=== PATIENT | female | born 1965 | race Caucasian/White ===

== ENCOUNTER 2016-10-03 03:50 | Inpatient (IN) | payer OTHER ==
[~2016-10-03] VITALS: Ht 170.2 cm; Wt 78.3 kg
[~2016-10-03 03:50] MED LIST: ADVAIR HFA120 INHALA IH; ADVIL200 MG PO; AMOX TR-K CLV1 EAC4 PO; ATARAX,VISTARIL50 MG PO; AUGMENTIN875 MG PO; BENZONATATE100 MG PO; CLONIDINE HCL0.1 MG PO; CYM; CYMBALTA30 MG PO; CYMBALTA60 MG PO; DESYREL 150 MG150 MG PO; DULOXETINE HCL30 MG PO; DULOXETINE HCL60 MG PO; ELIQUIS5 MG PO; ENDOCET 5-3251 EACH PO; FLORASTOR250 MG PO; FOLIC ACID1 MG PO; GABAPENTIN300 MG PO; HYDROXYZINE PAM25 MG PO; HYDROXYZINE PAM50 MG PO; K-DUR20 MEQ PO; KLOR-CON M2020 MEQ PO; LAMICTAL100 MG PO; LAMICTAL25 MG PO; LAMOTRIGINE100 MG PO; LEVAQUIN750 MG PO; LIBRIUM25 MG PO; LISINOPRIL10 MG PO; LISINOPRIL20 MG PO; LISINOPRIL40 MG PO; MELOXICAM7.5 MG PO; METRONIDAZOLE500 MG PO; MOTRIN; MOTRIN IB200 MG PO; MYCOSTATIN 100,60 ML PO; NEURONTIN300 MG PO; NICODERM CQ1 EAC2 TD; NICOTINE PATCH1 EAC2 TD; OMEPRAZOLE20 MG PO; OXYCODONE HCL5 MG PO; OXYCODONE-ACET1 EACH PO; PANTOPRAZOLE SO40 MG PO; PEPCID20 MG PO; PERCOCET 10/1 TABLET PO; PERCOCET 5/31 TABLET PO; PREDNISONE20 MG PO; PROAIR HFA8.5 GM IH; QUETIAPINE FUM100 MG PO; QUETIAPINE FUMA25 MG PO; QUETIAPINE FUMA50 MG PO; SPIRIVA RESPIMAT4 GM IH; TRAMADOL HCL50 MG PO; Thiamine,Vitamin B1 PO; ZOLPIDEM TARTRAT5 MG PO
[2016-10-03 04:36] LABS: CHLORIDE 98 mEq/L (99-109); POTASSIUM 3.6 mEq/L (3.7-5.4); SODIUM 134 mEq/L (136-147)
[2016-10-03 04:38] LABS: GLUCOSE 185 mg/dL (70-99)
[2016-10-03 04:39] LABS: ANION GAP 11 MEQ/L (2-14); HEMATOCRIT 35.5 % (36.0-46.0); MCH 31.8 PG (29.0-34.0); MCHC 33.5 G/DL (30.0-36.0); MCV 94.9 FL (83-99); MEAN PLAT.VOLUME 8.4 uM^3 (9.5-12.4); PLATELET COUNT 661 K/uL (156-360); RBC DIS.WIDTH-CV 16.6 % (11.8-14.6); RBC DIS.WIDTH-SD 55.4 % (39-53); RED BLOOD COUNT 3.74 M/uL (3.80-5.20); WHITE BLOOD COUNT 6.9 K/uL (4.1-10.2)
[2016-10-03 04:40] LABS: TOTAL BILIRUBIN 0.6 mg/dL (0.0-1.0)
[2016-10-03 04:41] LABS: ALKALINE PHOSPHATASE 89 IU/L (3-129)
[2016-10-03 04:42] LABS: GFR ESTIMATE (CALCULATED) > 59 mL/min/
[2016-10-03 04:43] LABS: UREA NITROGEN (BUN) 7 mg/dL (9-23)
[2016-10-03 04:45] LABS: LIPASE 181 U/L (1.0-51.0)
[2016-10-03 04:51] LABS: QUANTITATIVE HCG < 4.0 MIU/ML
[2016-10-03] MEDS ORDERED: KLOR-CON M2020 MEQ PO (09:14)
[2016-10-03 09:45] LABS: ADD MIUA? NO; BILIRUBIN NEGATIVE; BLOOD NEGATIVE; COLOR YELLOW ((YELLOW)); GLUCOSE (STRIP) NEGATIVE; KETONES NEGATIVE; LEUKOCYTES NEGATIVE; NITRITE NEGATIVE; PROTEIN (STRIP) NEGATIVE; UCUL ADDED? NO; UROBILINOGEN 0.2 MG/DL (0.2-1.0)
[2016-10-03 10:11] LABS: SPECIFIC GRAVITY 1.002 (1.000-1.030)
[2016-10-03 16:41] VITALS: BP 135/78
[2016-10-03 20:25] VITALS: BP 138/97
[2016-10-04] VITALS: BP 82/54
[2016-10-04 04:00] VITALS: BP 104/62
[2016-10-04 07:07] LABS: ANION GAP 6 MEQ/L (2-14); CHLORIDE 110 MEQ/L (99-109); GFR ESTIMATE (CALCULATED) > 59 mL/min/; GLUCOSE 131 mg/dL (70-99); POTASSIUM 4.1 MEQ/L (3.7-5.4); SAMPLE HEMOLYSIS CHECK 0; SAMPLE ICTERIC CHECK 0; SAMPLE LIPEMIA CHECK 0; SODIUM 139 MEQ/L (136-147); UREA NITROGEN (BUN) 3 mg/dL (9-23)
[2016-10-04 08:14] VITALS: BP 129/73
[2016-10-04 08:32] LABS: LIPASE 251 U/L (1.0-51.0)
[2016-10-04 08:38] LABS: EOSINOPHIL (%) 2.2 % (0-5); EOSINOPHIL COUNT 0.1 K/uL (0-0.3); HEMATOCRIT 29.9 % (36.0-46.0); IMMATURE GRANULOCYTE (%) 0.8 % (0.0-0.7); LYMPHOCYTE COUNT 0.9 K/uL (1.0-2.8); MCHC 31.4 G/DL (30.0-36.0); MEAN PLAT.VOLUME 9.1 uM^3 (9.5-12.4); MONOCYTE (%) 15.1 % (3-12); MONOCYTE COUNT 0.5 K/uL (0-0.8); NEUTROPHIL (%) 54.8 % (45-76); PLATELET COUNT 484 K/uL (156-360); RBC DIS.WIDTH-CV 17.3 % (11.8-14.6); RBC DIS.WIDTH-SD 63.4 % (39-53)
[2016-10-04 08:39] LABS: MCV 101.7 FL (83-99); RED BLOOD COUNT 2.94 M/uL (3.80-5.20); WHITE BLOOD COUNT 3.6 K/uL (4.1-10.2)
[2016-10-04 15:34] VITALS: BP 133/77
[2016-10-04 23:41] LABS: D-DIMER ELISA 0.48 mg/L FEU (< 0.57)
[2016-10-04 23:42] LABS: POTASSIUM 3.6 mEq/L (3.7-5.4); SODIUM 140 mEq/L (136-147)
[2016-10-04 23:45] LABS: GLUCOSE 170 mg/dL (70-99)
[2016-10-04 23:46] LABS: ANION GAP 9 MEQ/L (2-14); EOSINOPHIL (%) 0.4 % (0-5); HEMATOCRIT 33.2 % (36.0-46.0); IMMATURE GRANULOCYTE (%) 0.7 % (0.0-0.7); IMMATURE GRANULOCYTE COUNT 0.6 K/uL; LYMPHOCYTE COUNT 0.7 K/uL (1.0-2.8); MCHC 31.9 G/DL (30.0-36.0); MCV 100.3 FL (83-99); MEAN PLAT.VOLUME 8.5 uM^3 (9.5-12.4); MONOCYTE (%) 6.9 % (3-12); MONOCYTE COUNT 0.6 K/uL (0-0.8); NEUTROPHIL (%) 84.4 % (45-76); NEUTROPHIL COUNT 7.7 K/uL (1.8-6.4); PLATELET COUNT 572 K/uL (156-360); RBC DIS.WIDTH-CV 15.9 % (11.8-14.6); RBC DIS.WIDTH-SD 55.6 % (39-53); RED BLOOD COUNT 3.31 M/uL (3.80-5.20); WHITE BLOOD COUNT 9.1 K/uL (4.1-10.2)
[2016-10-04 23:48] LABS: ALKALINE PHOSPHATASE 76 IU/L (3-129); CHLORIDE 110 mEq/L (99-109); GFR ESTIMATE (CALCULATED) > 59 mL/min/; TOTAL BILIRUBIN 0.2 mg/dL (0.0-1.0)
[2016-10-04 23:49] LABS: UREA NITROGEN (BUN) 4 mg/dL (9-23)
[2016-10-05] VITALS (7 sets, daily range): BP systolic 111–175; BP diastolic 61–99
[2016-10-05 01:11] LABS: TROP-I INTERPRETATION NEGATIVE; TROPONIN-I < 0.01 ng/mL (0.0-0.30)
[2016-10-05 05:34] LABS: TROP-I INTERPRETATION NEGATIVE; TROPONIN-I < 0.01 ng/mL (0.0-0.30)
[2016-10-05 10:58] LABS: HEMATOCRIT 33.3 % (36.0-46.0); MCH 32.3 PG (29.0-34.0); MCHC 31.5 G/DL (30.0-36.0); MCV 102.5 FL (83-99); PLATELET COUNT 522 K/uL (156-360); RBC DIS.WIDTH-CV 16.4 % (11.8-14.6); RBC DIS.WIDTH-SD 61.3 % (39-53); RED BLOOD COUNT 3.25 M/uL (3.80-5.20); WHITE BLOOD COUNT 11.1 K/uL (4.1-10.2)
[2016-10-05 11:03] LABS: EOSINOPHIL (%) 0.3 % (0-5); IMMATURE GRANULOCYTE (%) 1.7 % (0.0-0.7); IMMATURE GRANULOCYTE COUNT 0.2 K/uL; LYMPHOCYTE COUNT 0.5 K/uL (1.0-2.8); MONOCYTE (%) 2.3 % (3-12); MONOCYTE COUNT 0.3 K/uL (0-0.8); NEUTROPHIL (%) 91.5 % (45-76); NEUTROPHIL COUNT 10.2 K/uL (1.8-6.4)
[2016-10-05 11:24] LABS: ANION GAP 9 MEQ/L (2-14); CHLORIDE 104 MEQ/L (99-109); GFR ESTIMATE (CALCULATED) > 59 mL/min/; LIPASE 269 U/L (1.0-51.0); POTASSIUM 4.2 MEQ/L (3.7-5.4); SAMPLE HEMOLYSIS CHECK 0; SAMPLE ICTERIC CHECK 0; SAMPLE LIPEMIA CHECK 0; SODIUM 139 MEQ/L (136-147); UREA NITROGEN (BUN) 3 mg/dL (9-23)
[2016-10-05 11:25] LABS: GLUCOSE 120 mg/dL (70-99)
[2016-10-05 11:34] LABS: TROP-I INTERPRETATION NEGATIVE; TROPONIN-I < 0.01 ng/mL (0.0-0.30)
[2016-10-06 04:17] VITALS: BP 138/90
[2016-10-06 08:13] VITALS: BP 146/52
[2016-10-06 09:37] LABS: ANION GAP 10 MEQ/L (2-14); CHLORIDE 103 MEQ/L (99-109); GFR ESTIMATE (CALCULATED) > 59 mL/min/; GLUCOSE 140 mg/dL (70-99); LIPASE 320 U/L (1.0-51.0); POTASSIUM 3.9 MEQ/L (3.7-5.4); SAMPLE HEMOLYSIS CHECK 0; SAMPLE ICTERIC CHECK 0; SAMPLE LIPEMIA CHECK 0; SODIUM 140 MEQ/L (136-147); UREA NITROGEN (BUN) 4 mg/dL (9-23)
[2016-10-06 14:56] VITALS: BP 151/89
[2016-10-06 23:10] VITALS: BP 134/73
[2016-10-07 03:30] VITALS: BP 135/85
[2016-10-07 08:38] VITALS: BP 172/76
[2016-10-07 16:00] VITALS: BP 160/98
[2016-10-07 19:28] VITALS: BP 171/97
[2016-10-07 22:47] VITALS: BP 121/68
[2016-10-08 02:54] VITALS: BP 134/70
[2016-10-08 06:10] LABS: HEMATOCRIT 29.6 % (36.0-46.0); MCH 32.1 PG (29.0-34.0); MCHC 31.8 G/DL (30.0-36.0); PLATELET COUNT 439 K/uL (156-360); RBC DIS.WIDTH-CV 17.5 % (11.8-14.6); RBC DIS.WIDTH-SD 64.3 % (39-53); RED BLOOD COUNT 2.93 M/uL (3.80-5.20); WHITE BLOOD COUNT 11.9 K/uL (4.1-10.2)
[2016-10-08 06:13] LABS: EOSINOPHIL (%) 0.4 % (0-5); EOSINOPHIL COUNT 0.1 K/uL (0-0.3); IMMATURE GRANULOCYTE (%) 1.3 % (0.0-0.7); IMMATURE GRANULOCYTE COUNT 0.2 K/uL; LYMPHOCYTE COUNT 1.7 K/uL (1.0-2.8); MONOCYTE COUNT 0.8 K/uL (0-0.8); NEUTROPHIL (%) 76.3 % (45-76); NEUTROPHIL COUNT 9.1 K/uL (1.8-6.4)
[2016-10-08 06:40] LABS: ANION GAP 5 MEQ/L (2-14); CHLORIDE 101 MEQ/L (99-109); GFR ESTIMATE (CALCULATED) > 59 mL/min/; GLUCOSE 112 mg/dL (70-99); LIPASE 118 U/L (1.0-51.0); POTASSIUM 3.9 MEQ/L (3.7-5.4); SAMPLE HEMOLYSIS CHECK 0; SAMPLE ICTERIC CHECK 0; SAMPLE LIPEMIA CHECK 0; SODIUM 137 MEQ/L (136-147); UREA NITROGEN (BUN) 2 mg/dL (9-23)
[2016-10-08 07:20] VITALS: BP 150/80
[2016-10-08 13:28] VITALS: BP 146/81
[2016-10-08 15:00] VITALS: BP 124/74
[2016-10-08 23:03] VITALS: BP 118/67
[2016-10-09 07:46] VITALS: BP 118/84
[2016-10-09 15:03] VITALS: BP 162/96
[2016-10-09 17:54] VITALS: BP 156/94
[2016-10-10 09:33] VITALS: BP 121/80
[2016-10-10 17:08] VITALS: BP 181/101
[2016-10-10 22:51] VITALS: BP 100/56
[2016-10-11 01:10] VITALS: BP 94/63
[2016-10-11 05:25] VITALS: BP 96/65
[2016-10-11 05:36] VITALS: BP 96/65
[2016-10-11 06:59] LABS: HEMATOCRIT 34.4 % (36.0-46.0); MCH 30.1 PG (29.0-34.0); MCHC 29.9 G/DL (30.0-36.0); MCV 100.6 FL (83-99); PLATELET COUNT 370 K/uL (156-360); RBC DIS.WIDTH-CV 17.2 % (11.8-14.6); RED BLOOD COUNT 3.42 M/uL (3.80-5.20)
[2016-10-11 07:00] LABS: WHITE BLOOD COUNT 4.1 K/uL (4.1-10.2)
[2016-10-11 07:29] LABS: ALKALINE PHOSPHATASE 54 IU/L (3-129); ANION GAP 6 MEQ/L (2-14); CHLORIDE 101 MEQ/L (99-109); GFR ESTIMATE (CALCULATED) > 59 mL/min/; GLUCOSE 134 mg/dL (70-99); POTASSIUM 4.2 MEQ/L (3.7-5.4); SAMPLE HEMOLYSIS CHECK 0; SAMPLE ICTERIC CHECK 0; SAMPLE LIPEMIA CHECK 0; SODIUM 137 MEQ/L (136-147); TOTAL BILIRUBIN 0.2 MG/DL (0.0-1.0); UREA NITROGEN (BUN) 3 mg/dL (9-23)
[2016-10-11 09:23] VITALS: BP 107/72
[2016-10-11 10:22] LABS: C DIFF TOXIN POSITIVE (NEGATIVE)
[2016-10-11 10:27] LABS: PROBE CHECK PASS
[2016-10-11 18:07] VITALS: BP 122/82
[2016-10-11 22:32] VITALS: BP 106/72
[2016-10-12 08:17] VITALS: BP 125/78
[2016-10-12 08:34] VITALS: BP 125/78
[2016-10-12] MEDS ORDERED: SUCRALFATE1 GM PO (11:11)
[2016-10-12] MEDS ORDERED: CREON DR 12,001 EAC1 PO (11:11)
[2016-10-12] MEDS ORDERED: NICOTINE PATCH1 EAC2 TD (11:11)
[2016-10-12] MEDS ORDERED: FAMOTIDINE40 MG PO (12:20)
== END 2016-10-12 15:35 | disposition home or self-care (01) | DRG 438 ==
LOC: EME 03:50 → EDOF 09:37 → 5EAST 09:37
PROVIDERS: Hospitalist; Internal Medicine; Internal Medicine Gastroenterology
PROC: 8E0ZXY6 Isolation (ICD-10-PCS; principal; 2016-10-03)
DX: K85.20 Alcohol induced acute pancreatitis without necrosis or infection (principal); J18.9 Pneumonia, unspecified organism; A04.7 Enterocolitis due to Clostridium difficile; E87.1 Hypo-osmolality and hyponatremia; F33.9 Major depressive disorder, recurrent, unspecified; J98.11 Atelectasis; F17.210 Nicotine dependence, cigarettes, uncomplicated; F10.20 Alcohol dependence, uncomplicated; I10 Essential (primary) hypertension; E87.6 Hypokalemia; J44.9 Chronic obstructive pulmonary disease, unspecified; G89.29 Other chronic pain; M51.9 Unspecified thoracic, thoracolumbar and lumbosacral intervertebral disc disorder; E86.1 Hypovolemia; F41.9 Anxiety disorder, unspecified; E66.9 Obesity, unspecified; M19.90 Unspecified osteoarthritis, unspecified site; Z86.711 Personal history of pulmonary embolism; Z86.718 Personal history of other venous thrombosis and embolism; Z68.27 Body mass index [BMI] 27.0-27.9, adult; Z88.5 Allergy status to narcotic agent; Z79.01 Long term (current) use of anticoagulants; Z91.040 Latex allergy status; Z82.49 Family history of ischemic heart disease and other diseases of the circulatory system
CPT/HCPCS: 71010; 74160; 74176; 74177; 76705; 80048; 80053; 81003; 83690; 84484; 84702; 85025; 85025 91; 85027; 85379; 87493; 93005; 94640; 94640 76; 94760; 94799; 99202; 99281; 99284; C9113; G0480; J0360; J1170; J1956; J2060; J2270; J2405; J7030; J7512; S0028; S0030

== ENCOUNTER 2016-10-21 10:25 | Inpatient (IN) | payer OTHER ==
[~2016-10-21] VITALS: Ht 167.6 cm; Wt 80.1 kg
[~2016-10-21 10:25] MED LIST changes: +CREON DR 12,001 EAC1 PO; +FAMOTIDINE40 MG PO; +SUCRALFATE1 GM PO
[2016-10-21 11:49] LABS: EOSINOPHIL (%) 0.6 % (0-5); EOSINOPHIL COUNT 0.1 K/uL (0-0.3); HEMATOCRIT 34.7 % (36.0-46.0); IMMATURE GRANULOCYTE (%) 0.2 % (0.0-0.7); IMMATURE GRANULOCYTE COUNT 0.2 K/uL; LYMPHOCYTE COUNT 0.7 K/uL (1.0-2.8); MCH 31.8 PG (29.0-34.0); MEAN PLAT.VOLUME 9.7 uM^3 (9.5-12.4); MONOCYTE (%) 4.2 % (3-12); MONOCYTE COUNT 0.5 K/uL (0-0.8); NEUTROPHIL (%) 88.3 % (45-76); NEUTROPHIL COUNT 9.6 K/uL (1.8-6.4); PLATELET COUNT 358 K/uL (156-360); RBC DIS.WIDTH-CV 15.4 % (11.8-14.6); RBC DIS.WIDTH-SD 49.3 % (39-53); RED BLOOD COUNT 3.71 M/uL (3.80-5.20)
[2016-10-21 11:53] LABS: MCV 93.5 FL (83-99); WHITE BLOOD COUNT 10.8 K/uL (4.1-10.2)
[2016-10-21 11:54] LABS: CHLORIDE 99 mEq/L (99-109); POTASSIUM 2.6 mEq/L (3.7-5.4); SODIUM 134 mEq/L (136-147)
[2016-10-21 11:56] LABS: GLUCOSE 128 mg/dL (70-99)
[2016-10-21 11:57] LABS: ANION GAP 13 MEQ/L (2-14)
[2016-10-21 11:58] LABS: TOTAL BILIRUBIN 0.5 mg/dL (0.0-1.0)
[2016-10-21 11:59] LABS: ALKALINE PHOSPHATASE 66 IU/L (3-129)
[2016-10-21 12:00] LABS: GFR ESTIMATE (CALCULATED) > 59 mL/min/
[2016-10-21 12:01] LABS: UREA NITROGEN (BUN) 2 mg/dL (9-23)
[2016-10-21 12:03] LABS: LIPASE 430 U/L (1.0-51.0)
[2016-10-21] MEDS ORDERED: CYMBALTA60 MG PO (13:20)
[2016-10-21] MEDS ORDERED: TRAZODONE HCL150 MG PO (13:21)
[2016-10-21] MEDS ORDERED: FAMOTIDINE40 MG PO (13:23)
[2016-10-21 15:18] LABS: SAMPLE HEMOLYSIS CHECK 0; SAMPLE ICTERIC CHECK 0; SAMPLE LIPEMIA CHECK 0
[2016-10-21 15:23] LABS: HDL CHOLESTEROL 53 MG/DL (Desirable>=50); LDL CHOLESTEROL 76 mg/dL (Desirable<100); NON-HDL CHOLESTEROL 116 mg/dL (Desirable<160); TOTAL CHOLESTEROL 169 mg/dL (Desirable<200); TRIGLYCERIDES 199 MG/DL (Normal: <150)
[2016-10-21 17:10] VITALS: BP 146/90
[2016-10-21 20:00] VITALS: BP 150/88
[2016-10-22] VITALS: BP 138/76
[2016-10-22 03:59] VITALS: BP 159/93
[2016-10-22 07:23] LABS: ALKALINE PHOSPHATASE 48 IU/L (3-129); ANION GAP 7 MEQ/L (2-14); CHLORIDE 109 MEQ/L (99-109); GFR ESTIMATE (CALCULATED) > 59 mL/min/; GLUCOSE 103 mg/dL (70-99); SAMPLE HEMOLYSIS CHECK 0; SAMPLE ICTERIC CHECK 0; SAMPLE LIPEMIA CHECK 0; TOTAL BILIRUBIN 0.2 MG/DL (0.0-1.0); UREA NITROGEN (BUN) 2 mg/dL (9-23)
[2016-10-22 07:25] LABS: POTASSIUM 3.2 MEQ/L (3.7-5.4); SODIUM 143 MEQ/L (136-147)
[2016-10-22 07:36] LABS: HEMATOCRIT 30.5 % (36.0-46.0); MCH 31.3 PG (29.0-34.0); MCHC 32.1 G/DL (30.0-36.0); MCV 97.4 FL (83-99); MEAN PLAT.VOLUME 9.9 uM^3 (9.5-12.4); PLATELET COUNT 278 K/uL (156-360); RBC DIS.WIDTH-CV 16.1 % (11.8-14.6); RBC DIS.WIDTH-SD 56.1 % (39-53); RED BLOOD COUNT 3.13 M/uL (3.80-5.20)
[2016-10-22 07:37] LABS: WHITE BLOOD COUNT 6.3 K/uL (4.1-10.2)
[2016-10-22 08:16] VITALS: BP 147/94
[2016-10-22 11:33] VITALS: BP 136/84
[2016-10-22 16:01] VITALS: BP 160/110
[2016-10-22 19:35] VITALS: BP 155/87
[2016-10-23 00:01] VITALS: BP 175/112
[2016-10-23 00:23] VITALS: BP 149/90
[2016-10-23 08:04] VITALS: BP 131/100
[2016-10-23 08:54] LABS: ANION GAP 5 MEQ/L (2-14); CHLORIDE 104 MEQ/L (99-109); GFR ESTIMATE (CALCULATED) > 59 mL/min/; GLUCOSE 99 mg/dL (70-99); POTASSIUM 3.3 MEQ/L (3.7-5.4); SAMPLE HEMOLYSIS CHECK 0; SAMPLE ICTERIC CHECK 0; SAMPLE LIPEMIA CHECK 0; SODIUM 139 MEQ/L (136-147); UREA NITROGEN (BUN) 2 mg/dL (9-23)
[2016-10-23] MEDS ORDERED: CYMBALTA60 MG PO (09:07)
[2016-10-23] MEDS ORDERED: TRAZODONE HCL150 MG PO (09:07)
[2016-10-23] MEDS ORDERED: MYLICON,MYLANTA80 MG PO (09:07)
[2016-10-23] MEDS ORDERED: HYDROXYZINE PAM50 MG PO (09:08)
[2016-10-23] MEDS ORDERED: LAMOTRIGINE100 MG PO (09:08)
[2016-10-23] MEDS ORDERED: PROTONIX40 MG PO (11:14)
[2016-10-23 11:22] VITALS: BP 174/104
== END 2016-10-23 13:46 | disposition home or self-care (01) | DRG 439 ==
LOC: EME 10:25 → 5SOUTH 13:33 → EDOF 13:33 → 5SOUTH 16:21
PROVIDERS: Emergency Medicine; Internal Medicine
DX: K85.90 Acute pancreatitis without necrosis or infection, unspecified (principal); F33.2 Major depressive disorder, recurrent severe without psychotic features; I10 Essential (primary) hypertension; F17.200 Nicotine dependence, unspecified, uncomplicated; E87.6 Hypokalemia; J44.9 Chronic obstructive pulmonary disease, unspecified; Z86.718 Personal history of other venous thrombosis and embolism; Z86.72 Personal history of thrombophlebitis; M79.7 Fibromyalgia; F10.21 Alcohol dependence, in remission; G89.29 Other chronic pain; F11.90 Opioid use, unspecified, uncomplicated; F13.90 Sedative, hypnotic, or anxiolytic use, unspecified, uncomplicated
CPT/HCPCS: 71020; 80048; 80053; 80061; 83690; 85025; 85027; 94640; 94640 76; 99202; 99281; 99285; J1170; J1885; J2060; J2270; J2405; J2765; J3010; J3480; J7030; J7120; S0028

== ENCOUNTER 2016-10-27 20:06 | Inpatient (IN) | payer OTHER ==
[~2016-10-27] VITALS: Ht 167.6 cm; Wt 77.6 kg
[~2016-10-27 20:06] MED LIST changes: +MYLICON,MYLANTA80 MG PO; +PROTONIX40 MG PO; +TRAZODONE HCL150 MG PO
[2016-10-27 20:44] LABS: MCH 31.2 PG (29.0-34.0); MCHC 33.8 G/DL (30.0-36.0); MEAN PLAT.VOLUME 8.8 uM^3 (9.5-12.4); RBC DIS.WIDTH-CV 16.2 % (11.8-14.6); RBC DIS.WIDTH-SD 52.5 % (39-53)
[2016-10-27 20:50] LABS: CHLORIDE 95 mEq/L (99-109); POTASSIUM 3.2 mEq/L (3.7-5.4); SODIUM 134 mEq/L (136-147)
[2016-10-27 20:53] LABS: GLUCOSE 131 mg/dL (70-99); MCV 92.4 FL (83-99); PLATELET COUNT 513 K/uL (156-360); RED BLOOD COUNT 4.33 M/uL (3.80-5.20); WHITE BLOOD COUNT 14.1 K/uL (4.1-10.2)
[2016-10-27 20:54] LABS: ANION GAP 15 MEQ/L (2-14)
[2016-10-27 20:56] LABS: ALKALINE PHOSPHATASE 72 IU/L (3-129); GFR ESTIMATE (CALCULATED) > 59 mL/min/
[2016-10-27 20:57] LABS: TOTAL BILIRUBIN 0.8 mg/dL (0.0-1.0); UREA NITROGEN (BUN) 9 mg/dL (9-23)
[2016-10-27 21:00] LABS: LIPASE 552 U/L (1.0-51.0)
[2016-10-27 21:05] LABS: QUANTITATIVE HCG < 4.0 MIU/ML
[2016-10-27] MEDS ORDERED: SPIRIVA1 INHALATI IH (23:03)
[2016-10-27] MEDS ORDERED: PANTOPRAZOLE SO20 MG PO (23:04)
[2016-10-27] MEDS ORDERED: CYMBALTA60 MG PO (23:06)
[2016-10-27 23:33] LABS: BILIRUBIN NEGATIVE; BLOOD NEGATIVE; COLOR YELLOW ((YELLOW)); GLUCOSE (STRIP) NEGATIVE; KETONES TRACE; LEUKOCYTES NEGATIVE; NITRITE NEGATIVE; PH, URINE 7.5 (5-8); PROTEIN (STRIP) 30; SPECIFIC GRAVITY 1.011 (1.000-1.030); UROBILINOGEN 0.2 MG/DL (0.2-1.0)
[2016-10-27 23:37] LABS: ADD MIUA? NO; UCUL ADDED? NO
[2016-10-28 00:44] VITALS: BP 131/90
[2016-10-28 06:53] LABS: ALKALINE PHOSPHATASE 52 IU/L (3-129); AMYLASE 168 IU/L (1-118); ANION GAP 7 MEQ/L (2-14); CHLORIDE 101 MEQ/L (99-109); GFR ESTIMATE (CALCULATED) > 59 mL/min/; LIPASE 295 U/L (1.0-51.0); POTASSIUM 3.5 MEQ/L (3.7-5.4); SAMPLE HEMOLYSIS CHECK 0; SAMPLE ICTERIC CHECK 0; SAMPLE LIPEMIA CHECK 0; SODIUM 136 MEQ/L (136-147); TRIGLYCERIDES 179 MG/DL (Normal: <150); UREA NITROGEN (BUN) 7 mg/dL (9-23)
[2016-10-28 06:56] LABS: GLUCOSE 96 mg/dL (70-99); TOTAL BILIRUBIN 0.7 MG/DL (0.0-1.0)
[2016-10-28 07:30] VITALS: BP 136/90
[2016-10-28 15:22] VITALS: BP 139/83
[2016-10-28 22:30] VITALS: BP 138/88
[2016-10-29 07:16] LABS: ALKALINE PHOSPHATASE 49 IU/L (3-129); ANION GAP 6 MEQ/L (2-14); CHLORIDE 107 MEQ/L (99-109); GFR ESTIMATE (CALCULATED) > 59 mL/min/; GLUCOSE 102 mg/dL (70-99); LIPASE 1144 U/L (1.0-51.0); SAMPLE HEMOLYSIS CHECK 0; SAMPLE ICTERIC CHECK 0; SAMPLE LIPEMIA CHECK 0; SODIUM 137 MEQ/L (136-147); UREA NITROGEN (BUN) 8 mg/dL (9-23)
[2016-10-29 07:21] LABS: POTASSIUM 4.4 MEQ/L (3.7-5.4); TOTAL BILIRUBIN 0.3 MG/DL (0.0-1.0)
[2016-10-29 07:46] VITALS: BP 154/81
[2016-10-29 15:13] VITALS: BP 172/106
[2016-10-29 19:28] VITALS: BP 165/93
[2016-10-29 22:36] VITALS: BP 139/95
[2016-10-30 08:30] VITALS: BP 150/98
[2016-10-30 15:46] VITALS: BP 171/100
[2016-10-30 22:56] VITALS: BP 163/72
[2016-10-31 07:29] LABS: ANION GAP 6 MEQ/L (2-14); CHLORIDE 104 MEQ/L (99-109); GFR ESTIMATE (CALCULATED) > 59 mL/min/; GLUCOSE 132 mg/dL (70-99); POTASSIUM 5.2 MEQ/L (3.7-5.4); SAMPLE HEMOLYSIS CHECK 0; SAMPLE ICTERIC CHECK 0; SAMPLE LIPEMIA CHECK 0; SODIUM 138 MEQ/L (136-147); UREA NITROGEN (BUN) 7 mg/dL (9-23)
[2016-10-31 07:30] VITALS: BP 135/72
[2016-10-31 07:57] LABS: PREALBUMIN 22.4 mg/dL (10-40)
[2016-10-31 10:54] VITALS: BP 134/74
[2016-10-31 15:31] VITALS: BP 144/73
[2016-10-31 16:11] VITALS: BP 135/72
[2016-10-31 23:28] VITALS: BP 115/64
[2016-11-01 06:58] LABS: EOSINOPHIL (%) 2.3 % (0-5); EOSINOPHIL COUNT 0.2 K/uL (0-0.3); HEMATOCRIT 36.3 % (36.0-46.0); IMMATURE GRANULOCYTE (%) 0.2 % (0.0-0.7); MCH 31.4 PG (29.0-34.0); MCHC 31.4 G/DL (30.0-36.0); MONOCYTE (%) 12.8 % (3-12); MONOCYTE COUNT 0.9 K/uL (0-0.8); NEUTROPHIL (%) 68.7 % (45-76); NEUTROPHIL COUNT 4.6 K/uL (1.8-6.4); RBC DIS.WIDTH-CV 16.4 % (11.8-14.6); RBC DIS.WIDTH-SD 60.3 % (39-53); RED BLOOD COUNT 3.63 M/uL (3.80-5.20)
[2016-11-01 07:01] LABS: WHITE BLOOD COUNT 6.6 K/uL (4.1-10.2)
[2016-11-01 07:25] VITALS: BP 106/72
[2016-11-01 07:26] LABS: ALKALINE PHOSPHATASE 62 IU/L (3-129); ANION GAP 6 MEQ/L (2-14); CHLORIDE 102 MEQ/L (99-109); DIRECT BILIRUBIN 0.1 mg/dL (0.0-0.3); GFR ESTIMATE (CALCULATED) > 59 mL/min/; GLUCOSE 104 mg/dL (70-99); MAGNESIUM 2.1 mg/dl (1.3-2.7); POTASSIUM 5.2 MEQ/L (3.7-5.4); SAMPLE HEMOLYSIS CHECK 0; SAMPLE ICTERIC CHECK 0; SAMPLE LIPEMIA CHECK 0; SODIUM 138 MEQ/L (136-147); TOTAL BILIRUBIN 0.3 MG/DL (0.0-1.0); TRIGLYCERIDES 136 MG/DL (Normal: <150); UREA NITROGEN (BUN) 11 mg/dL (9-23)
[2016-11-01 07:42] LABS: MEAN PLAT.VOLUME 9.5 uM^3 (9.5-12.4); PLAT.SUFFICIENCY ADEQUATE; PLATELET COUNT 356 K/uL (156-360); USER ID STC
[2016-11-01 07:45] LABS: LIPASE 848 U/L (1.0-51.0)
[2016-11-01 15:30] VITALS: BP 124/80
[2016-11-01] MEDS ORDERED: DURAGESIC25 MCG TD (16:22)
[2016-11-01] MEDS ORDERED: PERCOCET 10/1 TABLET PO (16:22)
[2016-11-01 23:23] VITALS: BP 102/72
[2016-11-02 07:36] LABS: ANION GAP 8 MEQ/L (2-14); CHLORIDE 103 MEQ/L (99-109); GFR ESTIMATE (CALCULATED) > 59 mL/min/; GLUCOSE 113 mg/dL (70-99); LIPASE 241 U/L (1.0-51.0); MAGNESIUM 2.1 mg/dl (1.3-2.7); POTASSIUM 5.1 MEQ/L (3.7-5.4); SAMPLE HEMOLYSIS CHECK 0; SAMPLE ICTERIC CHECK 0; SAMPLE LIPEMIA CHECK 0; SODIUM 136 MEQ/L (136-147); UREA NITROGEN (BUN) 12 mg/dL (9-23)
[2016-11-02 07:39] VITALS: BP 113/76
[2016-11-02] MEDS ORDERED: LAMOTRIGINE150 MG PO (12:54)
[2016-11-02] MEDS ORDERED: ALPRAZOLAM0.25 M2 PO (12:54)
[2016-11-02] MEDS ORDERED: MIRTAZAPINE15 MG PO (12:54)
[2016-11-02] MEDS ORDERED: CREON DR 12,001 EAC1 PO (12:54)
[2016-11-02] MEDS ORDERED: ZOFRAN4 MG PO (14:50)
[2016-11-02 15:42] VITALS: BP 115/72
== END 2016-11-02 15:44 | disposition home health service (06) | DRG 439 ==
LOC: EME 20:06 → EDOF 23:57 → 5EAST 23:57
PROVIDERS: Emergency Medicine; Family Medicine; Internal Medicine; Physician Assistant
PROC: 3E0436Z Introduction of Nutritional Substance into Central Vein, Percutaneous Approach (ICD-10-PCS; principal; 2016-10-31)
PROC: 02HV33Z Insertion of Infusion Device into Superior Vena Cava, Percutaneous Approach (ICD-10-PCS; 2016-10-31)
DX: K85.20 Alcohol induced acute pancreatitis without necrosis or infection (principal); R65.10 Systemic inflammatory response syndrome (SIRS) of non-infectious origin without acute organ dysfunction; F33.2 Major depressive disorder, recurrent severe without psychotic features; E87.1 Hypo-osmolality and hyponatremia; F17.210 Nicotine dependence, cigarettes, uncomplicated; I10 Essential (primary) hypertension; E86.0 Dehydration; E87.6 Hypokalemia; J43.9 Emphysema, unspecified; G89.4 Chronic pain syndrome; F10.21 Alcohol dependence, in remission; K86.1 Other chronic pancreatitis; K86.89 Other specified diseases of pancreas; F41.9 Anxiety disorder, unspecified; G47.00 Insomnia, unspecified; F60.9 Personality disorder, unspecified; E66.9 Obesity, unspecified; Z86.718 Personal history of other venous thrombosis and embolism; Z86.711 Personal history of pulmonary embolism; Z91.040 Latex allergy status; Z88.5 Allergy status to narcotic agent; Z79.01 Long term (current) use of anticoagulants; Z68.27 Body mass index [BMI] 27.0-27.9, adult
CPT/HCPCS: 74176; 74183; 76937; 80048; 80053; 81003; 82150; 82248; 83690; 83735; 84100; 84134; 84478; 84630 90; 84702; 85025; 85027; 87177; 87329; 87493; 94640 76; 99202; 99281; 99285; C9113; J0360; J1170; J1200; J1650; J2060; J2270; J2405; J2765; J3480; J7030

== ENCOUNTER 2016-11-08 11:15 | Emergency (ER) | payer OTHER ==
[~2016-11-08] VITALS: Ht 167.6 cm; Wt 84.9 kg
[~2016-11-08 11:15] MED LIST changes: +ALPRAZOLAM0.25 M2 PO; +DURAGESIC25 MCG TD; +LAMOTRIGINE150 MG PO; +MIRTAZAPINE15 MG PO; +PANTOPRAZOLE SO20 MG PO; +SPIRIVA1 INHALATI IH; +ZOFRAN4 MG PO
[2016-11-08 12:03] LABS: EOSINOPHIL (%) 0.2 % (0-5); HEMATOCRIT 38.9 % (36.0-46.0); IMMATURE GRANULOCYTE (%) 0.2 % (0.0-0.7); IMMATURE GRANULOCYTE COUNT 0.2 K/uL; LYMPHOCYTE COUNT 0.9 K/uL (1.0-2.8); MCH 31.7 PG (29.0-34.0); MCHC 33.4 G/DL (30.0-36.0); MCV 94.9 FL (83-99); MEAN PLAT.VOLUME 9.4 uM^3 (9.5-12.4); MONOCYTE (%) 5.4 % (3-12); MONOCYTE COUNT 0.7 K/uL (0-0.8); NEUTROPHIL (%) 87.4 % (45-76); NEUTROPHIL COUNT 11.3 K/uL (1.8-6.4); PLATELET COUNT 440 K/uL (156-360); RBC DIS.WIDTH-CV 15.3 % (11.8-14.6); RBC DIS.WIDTH-SD 51.1 % (39-53); WHITE BLOOD COUNT 12.9 K/uL (4.1-10.2)
[2016-11-08 12:10] LABS: CHLORIDE 103 mEq/L (99-109); POTASSIUM 4.1 mEq/L (3.7-5.4); SODIUM 136 mEq/L (136-147)
[2016-11-08 12:12] LABS: GLUCOSE 184 mg/dL (70-99)
[2016-11-08 12:13] LABS: ANION GAP 11 MEQ/L (2-14)
[2016-11-08 12:14] LABS: TOTAL BILIRUBIN 0.3 mg/dL (0.0-1.0)
[2016-11-08 12:15] LABS: ALKALINE PHOSPHATASE 80 IU/L (3-129)
[2016-11-08 12:16] LABS: GFR ESTIMATE (CALCULATED) > 59 mL/min/
[2016-11-08 12:17] LABS: UREA NITROGEN (BUN) 11 mg/dL (9-23)
[2016-11-08 12:19] LABS: LIPASE 183 U/L (1.0-51.0)
[2016-11-08] MEDS ORDERED: ZOFRAN ODT4 MG PO (13:13)
[2016-11-08 14:34] VITALS: BP 163/106
== END 2016-11-08 14:34 | disposition home or self-care (01) ==
LOC: EME 11:15
PROVIDERS: Emergency Medicine
DX: K85.90 Acute pancreatitis without necrosis or infection, unspecified (principal); J44.9 Chronic obstructive pulmonary disease, unspecified; I10 Essential (primary) hypertension; Z86.711 Personal history of pulmonary embolism; F17.200 Nicotine dependence, unspecified, uncomplicated
CPT/HCPCS: 80053; 83690; 85025; 99281; 99285; J1170; J2405; J2765; J3010; J7030

== ENCOUNTER 2016-11-10 20:32 | Inpatient (IN) | payer OTHER ==
[~2016-11-10] VITALS: Ht 167.6 cm; Wt 84.0 kg
[~2016-11-10 20:32] MED LIST changes: +ZOFRAN ODT4 MG PO
[2016-11-10 21:38] LABS: HEMATOCRIT 33.7 % (36.0-46.0); MCH 31.8 PG (29.0-34.0); MCHC 33.5 G/DL (30.0-36.0); MCV 94.9 FL (83-99); MEAN PLAT.VOLUME 9.3 uM^3 (9.5-12.4); PLATELET COUNT 344 K/uL (156-360); RBC DIS.WIDTH-CV 15.7 % (11.8-14.6); RBC DIS.WIDTH-SD 52.1 % (39-53); RED BLOOD COUNT 3.55 M/uL (3.80-5.20); WHITE BLOOD COUNT 9.2 K/uL (4.1-10.2)
[2016-11-10 21:48] LABS: ADD MIUA? NO; BILIRUBIN NEGATIVE; BLOOD NEGATIVE; COLOR STRAW ((YELLOW)); GLUCOSE (STRIP) NEGATIVE; KETONES NEGATIVE; LEUKOCYTES NEGATIVE; NITRITE NEGATIVE; PROTEIN (STRIP) NEGATIVE; SPECIFIC GRAVITY 1.006 (1.000-1.030); UCUL ADDED? NO; UROBILINOGEN 0.2 MG/DL (0.2-1.0)
[2016-11-10 21:49] LABS: CHLORIDE 102 mEq/L (99-109); SODIUM 133 mEq/L (136-147)
[2016-11-10 21:52] LABS: ANION GAP 7 MEQ/L (2-14)
[2016-11-10 21:53] LABS: GLUCOSE 100 mg/dL (70-99); POTASSIUM 2.9 mEq/L (3.7-5.4); TOTAL BILIRUBIN 0.2 mg/dL (0.0-1.0)
[2016-11-10 21:54] LABS: ALKALINE PHOSPHATASE 81 IU/L (3-129)
[2016-11-10 21:55] LABS: GFR ESTIMATE (CALCULATED) > 59 mL/min/
[2016-11-10 21:56] LABS: UREA NITROGEN (BUN) 8 mg/dL (9-23)
[2016-11-10 21:58] LABS: LIPASE 179 U/L (1.0-51.0)
[2016-11-10 22:04] LABS: QUANTITATIVE HCG < 4.0 MIU/ML
[2016-11-11 06:02] LABS: AMYLASE 156 IU/L (1-118); CHLORIDE 106 mEq/L (99-109); POTASSIUM 3.3 mEq/L (3.7-5.4); SODIUM 135 mEq/L (136-147)
[2016-11-11 06:04] LABS: GLUCOSE 123 mg/dL (70-99)
[2016-11-11 06:05] LABS: ANION GAP 5 MEQ/L (2-14)
[2016-11-11 06:07] LABS: ALKALINE PHOSPHATASE 66 IU/L (3-129)
[2016-11-11 06:08] LABS: GFR ESTIMATE (CALCULATED) > 59 mL/min/
[2016-11-11 06:09] LABS: UREA NITROGEN (BUN) 9 mg/dL (9-23)
[2016-11-11 06:11] LABS: LIPASE 183 U/L (1.0-51.0)
[2016-11-11 06:18] LABS: TOTAL BILIRUBIN 0.3 mg/dL (0.0-1.0)
[2016-11-11 08:36] LABS: TRIGLYCERIDES 112 MG/DL (Normal: <150)
[2016-11-11] MEDS ORDERED: OMEPRAZOLE20 MG PO (12:42)
[2016-11-11] MEDS ORDERED: MYLICON,MYLANTA80 MG PO (12:43)
[2016-11-11] MEDS ORDERED: DESYREL 150 MG150 MG PO (12:44)
[2016-11-11 17:53] VITALS: BP 142/88
[2016-11-11 19:26] LABS: C DIFF TOXIN POSITIVE (NEGATIVE)
[2016-11-11 19:40] LABS: PROBE CHECK PASS
[2016-11-11 20:54] VITALS: BP 110/79
[2016-11-12 00:51] VITALS: BP 110/70
[2016-11-12 04:07] LABS: CHLORIDE 101 mEq/L (99-109); POTASSIUM 3.8 mEq/L (3.7-5.4); SODIUM 127 mEq/L (136-147)
[2016-11-12 04:09] LABS: GLUCOSE 112 mg/dL (70-99)
[2016-11-12 04:11] LABS: ANION GAP 7 MEQ/L (2-14)
[2016-11-12 04:13] LABS: ALKALINE PHOSPHATASE 74 IU/L (3-129); GFR ESTIMATE (CALCULATED) > 59 mL/min/; TOTAL BILIRUBIN 0.6 mg/dL (0.0-1.0)
[2016-11-12 04:14] LABS: UREA NITROGEN (BUN) 7 mg/dL (9-23)
[2016-11-12 04:15] LABS: DIRECT BILIRUBIN 0.3 mg/dL (0.0-0.3)
[2016-11-12 07:55] LABS: HEMATOCRIT 31.5 % (36.0-46.0); MCH 31.9 PG (29.0-34.0); MCHC 33.7 G/DL (30.0-36.0); MCV 94.9 FL (83-99); RBC DIS.WIDTH-CV 16.4 % (11.8-14.6); RBC DIS.WIDTH-SD 57.2 % (39-53); RED BLOOD COUNT 3.32 M/uL (3.80-5.20); WHITE BLOOD COUNT 7.4 K/uL (4.1-10.2)
[2016-11-12 08:19] LABS: ALKALINE PHOSPHATASE 82 IU/L (3-129); DIRECT BILIRUBIN 0.3 mg/dL (0.0-0.3); LIPASE 86 U/L (1.0-51.0); TOTAL BILIRUBIN 0.7 MG/DL (0.0-1.0)
[2016-11-12 08:32] LABS: AMYLASE 85 IU/L (1-118)
[2016-11-12 08:33] LABS: C-REACTIVE PROTEIN 106.3 MG/L (0-10)
[2016-11-12 08:40] VITALS: BP 90/54
[2016-11-12 08:51] LABS: MEAN PLAT.VOLUME 9.3 uM^3 (9.5-12.4)
[2016-11-12 09:00] VITALS: BP 118/76
[2016-11-12 09:26] LABS: ADD MIUA? YES; BILIRUBIN NEGATIVE; BLOOD SMALL; COLOR STRAW ((YELLOW)); GLUCOSE (STRIP) NEGATIVE; KETONES NEGATIVE; LEUKOCYTES NEGATIVE; NITRITE NEGATIVE; PROTEIN (STRIP) NEGATIVE; SPECIFIC GRAVITY 1.002 (1.000-1.030); UROBILINOGEN 0.2 MG/DL (0.2-1.0)
[2016-11-12 09:45] VITALS: BP 92/52
[2016-11-12 09:51] LABS: BACTERIA RARE /HPF; EPITHELIAL CELLS RARE /HPF; MUCUS NONE SEEN /LPF; RED BLOOD CELLS 0-5 /HPF (0-5); UCUL ADDED? NO; WHITE BLOOD CELLS 0-5 /HPF (0-5)
[2016-11-12 11:22] LABS: ALKALINE PHOSPHATASE 72 IU/L (3-129); ANION GAP 9 MEQ/L (2-14); CHLORIDE 100 MEQ/L (99-109); DIRECT BILIRUBIN 0.3 mg/dL (0.0-0.3); GFR ESTIMATE (CALCULATED) > 59 mL/min/; GLUCOSE 116 mg/dL (70-99); MAGNESIUM 1.6 mg/dl (1.3-2.7); POTASSIUM 3.7 MEQ/L (3.7-5.4); PREALBUMIN 18.2 mg/dL (10-40); SAMPLE HEMOLYSIS CHECK 0; SAMPLE ICTERIC CHECK 0; SAMPLE LIPEMIA CHECK 0; SODIUM 132 MEQ/L (136-147); TOTAL BILIRUBIN 0.7 MG/DL (0.0-1.0); UREA NITROGEN (BUN) 8 mg/dL (9-23)
[2016-11-12 12:54] LABS: PLATELET COUNT 237 K/uL (156-360)
[2016-11-12 12:58] VITALS: BP 110/67
[2016-11-12 20:56] VITALS: BP 102/65
[2016-11-13 00:30] VITALS: BP 90/64
[2016-11-13 02:16] VITALS: BP 110/79
[2016-11-13 07:42] LABS: EOSINOPHIL (%) 2.4 % (0-5); EOSINOPHIL COUNT 0.1 K/uL (0-0.3); HEMATOCRIT 26.9 % (36.0-46.0); IMMATURE GRANULOCYTE (%) 0.2 % (0.0-0.7); LYMPHOCYTE COUNT 0.5 K/uL (1.0-2.8); MCHC 32.7 G/DL (30.0-36.0); MCV 94.7 FL (83-99); MEAN PLAT.VOLUME 9.9 uM^3 (9.5-12.4); MONOCYTE (%) 13.6 % (3-12); MONOCYTE COUNT 0.7 K/uL (0-0.8); NEUTROPHIL (%) 73.8 % (45-76); NEUTROPHIL COUNT 3.8 K/uL (1.8-6.4); PLATELET COUNT 206 K/uL (156-360); RBC DIS.WIDTH-CV 16.4 % (11.8-14.6); RED BLOOD COUNT 2.84 M/uL (3.80-5.20)
[2016-11-13 07:43] LABS: WHITE BLOOD COUNT 5.1 K/uL (4.1-10.2)
[2016-11-13 07:46] LABS: ANION GAP 7 MEQ/L (2-14); CHLORIDE 108 MEQ/L (99-109); DIRECT BILIRUBIN 0.2 mg/dL (0.0-0.3); GFR ESTIMATE (CALCULATED) > 59 mL/min/; GLUCOSE 111 mg/dL (70-99); LIPASE 43 U/L (1.0-51.0); POTASSIUM 3.8 MEQ/L (3.7-5.4); SAMPLE HEMOLYSIS CHECK 0; SAMPLE ICTERIC CHECK 0; SAMPLE LIPEMIA CHECK 0; SODIUM 137 MEQ/L (136-147); UREA NITROGEN (BUN) 5 mg/dL (9-23)
[2016-11-13 07:47] LABS: ALKALINE PHOSPHATASE 106 IU/L (3-129); MAGNESIUM 1.9 mg/dl (1.3-2.7); TOTAL BILIRUBIN 0.5 MG/DL (0.0-1.0)
[2016-11-13 08:36] VITALS: BP 97/67
[2016-11-13 15:22] LABS: IgG Subclass 4 (QD) 67.9 mg/dL (4.0-86.0)
[2016-11-13 23:55] VITALS: BP 142/60; BP 202/102
[2016-11-14 00:35] VITALS: BP 142/60
[2016-11-14 07:28] LABS: ANION GAP 8 MEQ/L (2-14); CHLORIDE 101 MEQ/L (99-109); GFR ESTIMATE (CALCULATED) > 59 mL/min/; GLUCOSE 118 mg/dL (70-99); MAGNESIUM 1.7 mg/dl (1.3-2.7); POTASSIUM 3.6 MEQ/L (3.7-5.4); SAMPLE HEMOLYSIS CHECK 0; SAMPLE ICTERIC CHECK 0; SAMPLE LIPEMIA CHECK 0; SODIUM 135 MEQ/L (136-147); UREA NITROGEN (BUN) 3 mg/dL (9-23)
[2016-11-14 08:14] VITALS: BP 148/98
[2016-11-14 09:23] LABS: LIPASE 31 U/L (1.0-51.0)
[2016-11-14 11:23] VITALS: BP 154/88
[2016-11-14 11:34] LABS: HEMATOCRIT 28.2 % (36.0-46.0)
[2016-11-14 16:28] VITALS: BP 136/52
[2016-11-14 19:08] LABS: APPEARANCE CLEAR/COLORLESS
[2016-11-14 19:10] LABS: CSF EOSINOPHILS 0 % (0-25); MONONUCLEAR WBC'S 100 % (50-90); POLYNUCLEAR WBC'S 0 % (0-3); RED CELL AREA COUNTED 18; RED CELL COUNT 0 /MM^3 (0-1); RED CELL DILUTION 1; WBC AREA COUNTED 18; WBC DILUTION 1; WHITE CELL COUNT 1 /MM^3 (0-5); WHITE CELL RAW COUNT 2
[2016-11-14 23:08] VITALS: BP 106/72
[2016-11-15 07:02] LABS: HEMATOCRIT 28.8 % (36.0-46.0); MCH 31.4 PG (29.0-34.0); MCV 92.3 FL (83-99); RBC DIS.WIDTH-CV 16.3 % (11.8-14.6); RBC DIS.WIDTH-SD 55.2 % (39-53); RED BLOOD COUNT 3.12 M/uL (3.80-5.20); WHITE BLOOD COUNT 4.1 K/uL (4.1-10.2)
[2016-11-15 07:38] LABS: EOSINOPHIL (%) 0 % (0-5); IMMATURE GRANULOCYTE (%) 0.2 % (0.0-0.7); LYMPHOCYTE COUNT 0.4 K/uL (1.0-2.8); MEAN PLAT.VOLUME 10.5 uM^3 (9.5-12.4); MONOCYTE (%) 3.2 % (3-12); MONOCYTE COUNT 0.1 K/uL (0-0.8); NEUTROPHIL (%) 85.8 % (45-76); NEUTROPHIL COUNT 3.5 K/uL (1.8-6.4)
[2016-11-15 07:40] LABS: PLATELET COUNT 326 K/uL (156-360)
[2016-11-15 07:41] LABS: ANION GAP 10 MEQ/L (2-14); CHLORIDE 99 MEQ/L (99-109); GFR ESTIMATE (CALCULATED) > 59 mL/min/; POTASSIUM 3.8 MEQ/L (3.7-5.4); SAMPLE HEMOLYSIS CHECK 0; SAMPLE ICTERIC CHECK 0; SAMPLE LIPEMIA CHECK 0; SODIUM 134 MEQ/L (136-147); TOTAL BILIRUBIN 0.5 MG/DL (0.0-1.0); UREA NITROGEN (BUN) 8 mg/dL (9-23)
[2016-11-15 07:42] LABS: ALKALINE PHOSPHATASE 164 IU/L (3-129); GLUCOSE 242 mg/dL (70-99)
[2016-11-15 08:17] VITALS: BP 128/72
[2016-11-15 16:24] VITALS: BP 136/72
[2016-11-15 23:59] VITALS: BP 126/78
[2016-11-16 01:40] VITALS: BP 127/63
[2016-11-16 07:23] LABS: HEMATOCRIT 27.3 % (36.0-46.0); MCH 30.7 PG (29.0-34.0); MCHC 32.6 G/DL (30.0-36.0); MCV 94.1 FL (83-99); MEAN PLAT.VOLUME 10.6 uM^3 (9.5-12.4); PLATELET COUNT 352 K/uL (156-360); RBC DIS.WIDTH-CV 16.8 % (11.8-14.6); RBC DIS.WIDTH-SD 58.1 % (39-53)
[2016-11-16 07:31] LABS: ANION GAP 10 MEQ/L (2-14); CHLORIDE 99 MEQ/L (99-109); GFR ESTIMATE (CALCULATED) > 59 mL/min/; GLUCOSE 283 mg/dL (70-99); MAGNESIUM 1.9 mg/dl (1.3-2.7); POTASSIUM 3.8 MEQ/L (3.7-5.4); SAMPLE HEMOLYSIS CHECK 0; SAMPLE ICTERIC CHECK 0; SAMPLE LIPEMIA CHECK 0; SODIUM 137 MEQ/L (136-147); UREA NITROGEN (BUN) 10 mg/dL (9-23)
[2016-11-16 07:33] LABS: ALKALINE PHOSPHATASE 129 IU/L (3-129); ANION GAP 9 MEQ/L (2-14); CHLORIDE 100 MEQ/L (99-109); GFR ESTIMATE (CALCULATED) > 59 mL/min/; GLUCOSE 283 mg/dL (70-99); POTASSIUM 3.8 MEQ/L (3.7-5.4); SAMPLE HEMOLYSIS CHECK 0; SAMPLE ICTERIC CHECK 0; SAMPLE LIPEMIA CHECK 0; SODIUM 137 MEQ/L (136-147); UREA NITROGEN (BUN) 10 mg/dL (9-23)
[2016-11-16 07:35] LABS: TOTAL BILIRUBIN 0.2 MG/DL (0.0-1.0)
[2016-11-16 07:55] VITALS: BP 156/81
[2016-11-16 08:26] LABS: EOSINOPHIL (%) 0 % (0-5); HEMATOLOGY COMMENT 1 SMEAR COMPATIBLE; IMMATURE GRANULOCYTE (%) 0.8 % (0.0-0.7); IMMATURE GRANULOCYTE COUNT 0.1 K/uL; LYMPHOCYTE COUNT 0.7 K/uL (1.0-2.8); MONOCYTE (%) 7.3 % (3-12); NEUTROPHIL (%) 86.4 % (45-76); NEUTROPHIL COUNT 11.3 K/uL (1.8-6.4); USER ID STC
[2016-11-16 17:07] VITALS: BP 157/91
[2016-11-17 00:23] VITALS: BP 126/81
[2016-11-17 07:27] LABS: HEMATOCRIT 31.2 % (36.0-46.0); MCH 29.8 PG (29.0-34.0); MCHC 31.7 G/DL (30.0-36.0); NRBC (%) 0.5 /100 WBC (0-0); RBC DIS.WIDTH-CV 17.1 % (11.8-14.6); RBC DIS.WIDTH-SD 58.8 % (39-53); RED BLOOD COUNT 3.32 M/uL (3.80-5.20); WHITE BLOOD COUNT 12.4 K/uL (4.1-10.2)
[2016-11-17 07:36] VITALS: BP 152/93
[2016-11-17 07:44] LABS: MEAN PLAT.VOLUME 9.8 uM^3 (9.5-12.4)
[2016-11-17 07:50] LABS: ANION GAP 8 MEQ/L (2-14); CHLORIDE 100 MEQ/L (99-109); GFR ESTIMATE (CALCULATED) > 59 mL/min/; GLUCOSE 164 mg/dL (70-99); MAGNESIUM 1.9 mg/dl (1.3-2.7); POTASSIUM 3.7 MEQ/L (3.7-5.4); SAMPLE HEMOLYSIS CHECK 0; SAMPLE ICTERIC CHECK 0; SAMPLE LIPEMIA CHECK 0; SODIUM 138 MEQ/L (136-147); UREA NITROGEN (BUN) 12 mg/dL (9-23)
[2016-11-17 07:54] LABS: PLATELET COUNT 499 K/uL (156-360)
[2016-11-17 08:06] LABS: EOSINOPHIL (%) 0 % (0-5); HEMATOLOGY COMMENT 1 SMEAR COMPATIBLE; IMMATURE GRANULOCYTE COUNT 0.5 K/uL; LYMPHOCYTE COUNT 1.2 K/uL (1.0-2.8); MONOCYTE (%) 11.4 % (3-12); MONOCYTE COUNT 1.4 K/uL (0-0.8); NEUTROPHIL (%) 74.4 % (45-76); NEUTROPHIL COUNT 9.2 K/uL (1.8-6.4); PLAT.SUFFICIENCY INCREASED; USER ID TLW
[2016-11-17 15:45] VITALS: BP 164/98
[2016-11-18 00:14] VITALS: BP 127/74
[2016-11-18 07:24] LABS: INFLUENZA A VIRAL ANTIGEN NEGATIVE; INFLUENZA B VIRAL ANTIGEN NEGATIVE
[2016-11-18 07:36] VITALS: BP 160/102
[2016-11-18 08:08] LABS: ANION GAP 7 MEQ/L (2-14); CHLORIDE 101 MEQ/L (99-109); GFR ESTIMATE (CALCULATED) > 59 mL/min/; MAGNESIUM 1.9 mg/dl (1.3-2.7); POTASSIUM 3.9 MEQ/L (3.7-5.4); SAMPLE HEMOLYSIS CHECK 0; SAMPLE ICTERIC CHECK 0; SAMPLE LIPEMIA CHECK 0; SODIUM 140 MEQ/L (136-147); UREA NITROGEN (BUN) 11 mg/dL (9-23)
[2016-11-18 08:12] LABS: GLUCOSE 98 mg/dL (70-99)
[2016-11-18] MEDS ORDERED: TOPAMAX50 MG PO (10:47)
[2016-11-18] MEDS ORDERED: OXYCODONE HCL5 MG PO (10:47)
[2016-11-18] MEDS ORDERED: BUTALB-APAP-CA1 EACH PO (10:47)
[2016-11-18] MEDS ORDERED: FLUCONAZOLE200 MG PO (10:47)
[2016-11-18] MEDS ORDERED: Chronulac,Cephulac,E PO (10:47)
[2016-11-18 11:22] VITALS: BP 128/76
[2016-11-23 19:06] LABS: Pancreatic Elastase-1 470 mcg/g (())
== END 2016-11-18 11:54 | disposition home or self-care (01) | DRG 439 ==
LOC: EME → EDBD 20:32 → EME 20:32 → 5EAST 11-11 02:53 → EDOF 11-11 02:53 → 5EAST 11-11 16:03
PROVIDERS: Family Medicine; Hospitalist; Internal Medicine; Internal Medicine Gastroenterology; Psychiatry & Neurology Neurology
PROC: 009U3ZX Drainage of Spinal Canal, Percutaneous Approach, Diagnostic (ICD-10-PCS; principal; 2016-11-14)
DX: K85.20 Alcohol induced acute pancreatitis without necrosis or infection (principal); B49 Unspecified mycosis; E87.1 Hypo-osmolality and hyponatremia; A04.7 Enterocolitis due to Clostridium difficile; E87.6 Hypokalemia; J44.9 Chronic obstructive pulmonary disease, unspecified; G89.4 Chronic pain syndrome; M79.7 Fibromyalgia; G89.29 Other chronic pain; R51 Headache; F17.200 Nicotine dependence, unspecified, uncomplicated; F10.21 Alcohol dependence, in remission; F32.9 Major depressive disorder, single episode, unspecified; F41.9 Anxiety disorder, unspecified; Z88.8 Allergy status to other drugs, medicaments and biological substances; R73.03 Prediabetes; K86.1 Other chronic pancreatitis; I10 Essential (primary) hypertension; D64.9 Anemia, unspecified; B37.9 Candidiasis, unspecified; Z86.711 Personal history of pulmonary embolism; Z79.01 Long term (current) use of anticoagulants
CPT/HCPCS: 70450; 71010; 74177; 80048; 80048 91; 80053; 80069; 80076; 80202; 81003; 82150; 82656 90; 82787 90; 82945; 83605; 83690; 83735; 84100; 84134; 84157; 84478; 84630 90; 84702; 85014; 85018; 85025; 85027; 86140; 86301 90; 87040; 87070; 87102; 87106; 87149; 87149 59; 87186 90; 87205; 87493; 87502; 87899; 89051; 94640; 94640 76; 94760; 99202; 99281; 99285; C9113; J0744; J1170; J1200; J1450; J1630; J1885; J1940; J2270; J2405; J2543; J2765; J2930; J3010; J3370; J3480; J7030; J7050; S0030

== ENCOUNTER 2016-12-14 06:00 | Inpatient (IN) | payer OTHER ==
[~2016-12-14] VITALS: Ht 167.6 cm; Wt 81.8 kg
[~2016-12-14 06:00] MED LIST changes: +BUTALB-APAP-CA1 EACH PO; +Chronulac,Cephulac,E PO; +FLUCONAZOLE200 MG PO; +TOPAMAX50 MG PO
[2016-12-14 06:55] LABS: HEMATOCRIT 38.5 % (36.0-46.0); MCH 30.7 PG (29.0-34.0); MCHC 32.7 G/DL (30.0-36.0); MCV 93.7 FL (83-99); MEAN PLAT.VOLUME 9.8 uM^3 (9.5-12.4); RBC DIS.WIDTH-CV 16.1 % (11.8-14.6); RBC DIS.WIDTH-SD 54.8 % (39-53); WHITE BLOOD COUNT 12.2 K/uL (4.1-10.2)
[2016-12-14 07:16] LABS: ANION GAP 10 MEQ/L (2-14); CHLORIDE 102 MEQ/L (99-109); POTASSIUM 3.8 MEQ/L (3.7-5.4); SAMPLE HEMOLYSIS CHECK 0; SAMPLE ICTERIC CHECK 0; SAMPLE LIPEMIA CHECK 0; SODIUM 136 MEQ/L (136-147); TOTAL BILIRUBIN 0.5 MG/DL (0.0-1.0)
[2016-12-14 07:21] LABS: ALKALINE PHOSPHATASE 58 IU/L (3-129); GFR ESTIMATE (CALCULATED) > 59 mL/min/; GLUCOSE 138 mg/dL (70-99); LIPASE 307 U/L (1.0-51.0); UREA NITROGEN (BUN) 5 mg/dL (9-23)
[2016-12-14 07:22] LABS: PLATELET COUNT 241 K/uL (156-360); RED BLOOD COUNT 4.11 M/uL (3.80-5.20)
[2016-12-14 09:25] LABS: Estimated Average Glucose 117 mg/dL (70-123); HEMOGLOBIN A1c (GLYCOHEMOGLOB) 5.7 % HGB (Below 5.7)
[2016-12-14] MEDS ORDERED: LAMICTAL200 MG PO (09:44)
[2016-12-14] MEDS ORDERED: OXYCODONE-APAP1 EACH PO (09:51)
[2016-12-14] MEDS ORDERED: PROBIOTIC1 EAC3 PO (09:52)
[2016-12-14 10:27] VITALS: BP 170/98
[2016-12-14 11:48] VITALS: BP 112/71
[2016-12-14 16:30] VITALS: BP 123/67
[2016-12-14 19:31] VITALS: BP 104/59
[2016-12-14 23:51] VITALS: BP 120/62
[2016-12-15 03:47] VITALS: BP 102/63
[2016-12-15 04:52] LABS: HEMATOCRIT 34.2 % (36.0-46.0); MCH 30.9 PG (29.0-34.0); MEAN PLAT.VOLUME 10.3 uM^3 (9.5-12.4); PLATELET COUNT 258 K/uL (156-360); RBC DIS.WIDTH-CV 16.5 % (11.8-14.6); RBC DIS.WIDTH-SD 60.6 % (39-53); RED BLOOD COUNT 3.43 M/uL (3.80-5.20)
[2016-12-15 04:53] LABS: MCV 99.7 FL (83-99); WHITE BLOOD COUNT 6.8 K/uL (4.1-10.2)
[2016-12-15 05:06] LABS: CHLORIDE 107 mEq/L (99-109); POTASSIUM 3.5 mEq/L (3.7-5.4); SODIUM 140 mEq/L (136-147)
[2016-12-15 05:09] LABS: ANION GAP 7 MEQ/L (2-14)
[2016-12-15 05:10] LABS: GLUCOSE 94 mg/dL (70-99)
[2016-12-15 05:12] LABS: GFR ESTIMATE (CALCULATED) > 59 mL/min/
[2016-12-15 05:13] LABS: UREA NITROGEN (BUN) 5 mg/dL (9-23)
[2016-12-15 07:55] VITALS: BP 114/68
[2016-12-15 11:38] VITALS: BP 120/71
[2016-12-15 13:28] LABS: ADD MIUA? YES; BILIRUBIN NEGATIVE; BLOOD NEGATIVE; COLOR YELLOW ((YELLOW)); GLUCOSE (STRIP) NEGATIVE; KETONES NEGATIVE; LEUKOCYTES TRACE; NITRITE NEGATIVE; PROTEIN (STRIP) NEGATIVE; SPECIFIC GRAVITY 1.009 (1.000-1.030); UROBILINOGEN 0.2 MG/DL (0.2-1.0)
[2016-12-15 13:37] LABS: BACTERIA 2+ /HPF; EPITHELIAL CELLS RARE /HPF; MUCUS TRACE /LPF; RED BLOOD CELLS 0-5 /HPF (0-5); UCUL ADDED? YES; WHITE BLOOD CELLS 15-20 /HPF (0-5)
[2016-12-15 13:37] LABS: SERUM ETHYL ALCOHOL < 10 mg/dL
[2016-12-15 13:47] LABS: LIPASE 338 U/L (1.0-51.0)
[2016-12-15 14:18] LABS: IRON 21 MCG/DL (35-150)
[2016-12-15 15:03] LABS: FERRITIN 78 NG/ML (10-291)
[2016-12-15 16:16] VITALS: BP 140/82
[2016-12-15 19:45] VITALS: BP 123/70
[2016-12-15 23:40] VITALS: BP 135/72
[2016-12-16 07:08] LABS: EOSINOPHIL (%) 2.3 % (0-5); EOSINOPHIL COUNT 0.2 K/uL (0-0.3); HEMATOCRIT 35.3 % (36.0-46.0); IMMATURE GRANULOCYTE (%) 0.3 % (0.0-0.7); INSTRUMENT ABS NEUTROPHIL CT 7.2 K/uL; LYMPHOCYTE COUNT 1.4 K/uL (1.0-2.8); MCH 30.5 PG (29.0-34.0); MCHC 31.2 G/DL (30.0-36.0); MCV 97.8 FL (83-99); MONOCYTE (%) 7.5 % (3-12); MONOCYTE COUNT 0.7 K/uL (0-0.8); NEUTROPHIL (%) 75.2 % (45-76); NEUTROPHIL COUNT 7.2 K/uL (1.8-6.4); PLATELET COUNT 286 K/uL (156-360); RBC DIS.WIDTH-CV 16.3 % (11.8-14.6); RBC DIS.WIDTH-SD 57.7 % (39-53); RED BLOOD COUNT 3.61 M/uL (3.80-5.20)
[2016-12-16 07:09] LABS: WHITE BLOOD COUNT 9.6 K/uL (4.1-10.2)
[2016-12-16 07:19] LABS: ALKALINE PHOSPHATASE 58 IU/L (3-129); ANION GAP 7 MEQ/L (2-14); CHLORIDE 105 MEQ/L (99-109); GFR ESTIMATE (CALCULATED) > 59 mL/min/; GLUCOSE 94 mg/dL (70-99); LIPASE 1209 U/L (1.0-51.0); POTASSIUM 4.1 MEQ/L (3.7-5.4); SAMPLE HEMOLYSIS CHECK 0; SAMPLE ICTERIC CHECK 0; SAMPLE LIPEMIA CHECK 0; SODIUM 138 MEQ/L (136-147); UREA NITROGEN (BUN) 8 mg/dL (9-23)
[2016-12-16 07:20] LABS: TOTAL BILIRUBIN 0.2 MG/DL (0.0-1.0)
[2016-12-16 07:47] VITALS: BP 160/90
[2016-12-16 11:43] VITALS: BP 135/100
[2016-12-16 16:26] VITALS: BP 155/90
[2016-12-16 20:14] VITALS: BP 176/97
[2016-12-16 23:56] VITALS: BP 101/52; BP 98/55
[2016-12-17 03:40] VITALS: BP 139/79
[2016-12-17 05:35] LABS: EOSINOPHIL (%) 2.5 % (0-5); EOSINOPHIL COUNT 0.2 K/uL (0-0.3); HEMATOCRIT 33.2 % (36.0-46.0); IMMATURE GRANULOCYTE (%) 0.3 % (0.0-0.7); INSTRUMENT ABS NEUTROPHIL CT 4.8 K/uL; LYMPHOCYTE COUNT 1.2 K/uL (1.0-2.8); MCH 30.3 PG (29.0-34.0); MCHC 31.3 G/DL (30.0-36.0); MCV 96.8 FL (83-99); MEAN PLAT.VOLUME 9.8 uM^3 (9.5-12.4); MONOCYTE (%) 10.2 % (3-12); MONOCYTE COUNT 0.7 K/uL (0-0.8); NEUTROPHIL (%) 69.6 % (45-76); NEUTROPHIL COUNT 4.8 K/uL (1.8-6.4); PLATELET COUNT 288 K/uL (156-360); RBC DIS.WIDTH-CV 16.6 % (11.8-14.6); RBC DIS.WIDTH-SD 59.3 % (39-53); RED BLOOD COUNT 3.43 M/uL (3.80-5.20); WHITE BLOOD COUNT 6.9 K/uL (4.1-10.2)
[2016-12-17 06:35] LABS: ANION GAP 7 MEQ/L (2-14); CHLORIDE 104 MEQ/L (99-109); GFR ESTIMATE (CALCULATED) > 59 mL/min/; GLUCOSE 105 mg/dL (70-99); LIPASE 747 U/L (1.0-51.0); POTASSIUM 4.1 MEQ/L (3.7-5.4); SAMPLE HEMOLYSIS CHECK 0; SAMPLE ICTERIC CHECK 0; SAMPLE LIPEMIA CHECK 0; SODIUM 138 MEQ/L (136-147); UREA NITROGEN (BUN) 8 mg/dL (9-23)
[2016-12-17 08:03] VITALS: BP 135/75
[2016-12-17 12:26] VITALS: BP 144/81
[2016-12-17 16:34] VITALS: BP 175/94
[2016-12-17 19:42] VITALS: BP 135/76
[2016-12-17 23:50] VITALS: BP 115/70
[2016-12-18 03:50] VITALS: BP 123/64
[2016-12-18 05:54] LABS: MCH 30.5 PG (29.0-34.0); MCHC 31.3 G/DL (30.0-36.0); MCV 97.6 FL (83-99); MEAN PLAT.VOLUME 9.8 uM^3 (9.5-12.4); PLATELET COUNT 280 K/uL (156-360); RBC DIS.WIDTH-CV 16.4 % (11.8-14.6); RBC DIS.WIDTH-SD 58.8 % (39-53); RED BLOOD COUNT 3.28 M/uL (3.80-5.20); WHITE BLOOD COUNT 6.2 K/uL (4.1-10.2)
[2016-12-18 06:40] LABS: ANION GAP 7 MEQ/L (2-14); CHLORIDE 105 MEQ/L (99-109); GFR ESTIMATE (CALCULATED) > 59 mL/min/; GLUCOSE 102 mg/dL (70-99); LIPASE 400 U/L (1.0-51.0); MAGNESIUM 1.8 mg/dl (1.3-2.7); POTASSIUM 4.3 MEQ/L (3.7-5.4); SAMPLE HEMOLYSIS CHECK 0; SAMPLE ICTERIC CHECK 0; SAMPLE LIPEMIA CHECK 0; SODIUM 141 MEQ/L (136-147); UREA NITROGEN (BUN) 5 mg/dL (9-23)
[2016-12-18 08:30] VITALS: BP 134/83
[2016-12-18 11:48] VITALS: BP 149/95
[2016-12-18 16:30] VITALS: BP 132/82
[2016-12-18 20:34] VITALS: BP 168/86
[2016-12-19 00:57] VITALS: BP 133/76
[2016-12-19 04:44] VITALS: BP 151/83
[2016-12-19 06:05] LABS: HEMATOCRIT 33.3 % (36.0-46.0); MCH 30.2 PG (29.0-34.0); MCHC 30.9 G/DL (30.0-36.0); MCV 97.7 FL (83-99); MEAN PLAT.VOLUME 9.4 uM^3 (9.5-12.4); PLATELET COUNT 329 K/uL (156-360); RBC DIS.WIDTH-CV 16.3 % (11.8-14.6); RBC DIS.WIDTH-SD 58.9 % (39-53); RED BLOOD COUNT 3.41 M/uL (3.80-5.20); WHITE BLOOD COUNT 6.2 K/uL (4.1-10.2)
[2016-12-19 06:34] LABS: ANION GAP 6 MEQ/L (2-14); CHLORIDE 102 MEQ/L (99-109); GFR ESTIMATE (CALCULATED) > 59 mL/min/; GLUCOSE 103 mg/dL (70-99); POTASSIUM 3.8 MEQ/L (3.7-5.4); SAMPLE HEMOLYSIS CHECK 0; SAMPLE ICTERIC CHECK 0; SAMPLE LIPEMIA CHECK 0; SODIUM 139 MEQ/L (136-147); UREA NITROGEN (BUN) 9 mg/dL (9-23)
[2016-12-19 08:07] VITALS: BP 158/87
[2016-12-19 17:52] VITALS: BP 159/94
[2016-12-19 20:17] VITALS: BP 150/85
[2016-12-20] VITALS: BP 129/85
[2016-12-20 04:01] VITALS: BP 123/87
[2016-12-20 08:00] VITALS: BP 141/80
[2016-12-20 11:02] VITALS: BP 135/87
[2016-12-20 15:55] VITALS: BP 187/97
[2016-12-20 19:43] VITALS: BP 155/91
[2016-12-21 00:27] VITALS: BP 139/91
[2016-12-21 07:59] LABS: HEMATOCRIT 35.3 % (36.0-46.0); MCH 30.4 PG (29.0-34.0); MCHC 30.9 G/DL (30.0-36.0); MCV 98.3 FL (83-99); MEAN PLAT.VOLUME 9.5 uM^3 (9.5-12.4); PLATELET COUNT 382 K/uL (156-360); RBC DIS.WIDTH-CV 16.3 % (11.8-14.6); RBC DIS.WIDTH-SD 59.1 % (39-53); RED BLOOD COUNT 3.59 M/uL (3.80-5.20)
[2016-12-21 08:28] LABS: ALKALINE PHOSPHATASE 58 IU/L (3-129); ANION GAP 10 MEQ/L (2-14); CHLORIDE 100 MEQ/L (99-109); GFR ESTIMATE (CALCULATED) > 59 mL/min/; GLUCOSE 104 mg/dL (70-99); LIPASE 108 U/L (1.0-51.0); POTASSIUM 4.4 MEQ/L (3.7-5.4); SAMPLE HEMOLYSIS CHECK 0; SAMPLE ICTERIC CHECK 0; SAMPLE LIPEMIA CHECK 0; SODIUM 143 MEQ/L (136-147); UREA NITROGEN (BUN) 9 mg/dL (9-23)
[2016-12-21 08:34] LABS: TOTAL BILIRUBIN 0.4 MG/DL (0.0-1.0)
[2016-12-21 08:43] VITALS: BP 143/81
[2016-12-21 11:18] VITALS: BP 150/103
[2016-12-21 17:16] VITALS: BP 161/58
[2016-12-21 19:34] VITALS: BP 152/93
[2016-12-22] VITALS (7 sets, daily range): BP systolic 118–179; BP diastolic 72–101
[2016-12-23 00:01] VITALS: BP 121/80
[2016-12-23 04:36] VITALS: BP 144/92
[2016-12-23 08:03] VITALS: BP 103/65
[2016-12-23 15:04] VITALS: BP 145/80
[2016-12-23 19:36] VITALS: BP 151/70
[2016-12-23 23:26] VITALS: BP 148/65
[2016-12-24 03:44] VITALS: BP 125/67
[2016-12-24 07:46] LABS: HEMATOCRIT 33.2 % (36.0-46.0); MCH 29.7 PG (29.0-34.0); MCHC 30.7 G/DL (30.0-36.0); MCV 96.8 FL (83-99); MEAN PLAT.VOLUME 9.6 uM^3 (9.5-12.4); PLATELET COUNT 406 K/uL (156-360); RBC DIS.WIDTH-CV 16.4 % (11.8-14.6); RBC DIS.WIDTH-SD 58.9 % (39-53); RED BLOOD COUNT 3.43 M/uL (3.80-5.20)
[2016-12-24 07:49] LABS: WHITE BLOOD COUNT 11.7 K/uL (4.1-10.2)
[2016-12-24 07:53] LABS: ALKALINE PHOSPHATASE 51 IU/L (3-129); ANION GAP 8 MEQ/L (2-14); CHLORIDE 102 MEQ/L (99-109); GFR ESTIMATE (CALCULATED) > 59 mL/min/; GLUCOSE 112 mg/dL (70-99); LIPASE 41 U/L (1.0-51.0); POTASSIUM 4.1 MEQ/L (3.7-5.4); SAMPLE HEMOLYSIS CHECK 0; SAMPLE ICTERIC CHECK 0; SAMPLE LIPEMIA CHECK 0; SODIUM 140 MEQ/L (136-147); TOTAL BILIRUBIN 0.3 MG/DL (0.0-1.0); UREA NITROGEN (BUN) 11 mg/dL (9-23)
[2016-12-24 08:10] VITALS: BP 139/79
[2016-12-24 11:18] VITALS: BP 143/82
[2016-12-24 16:07] VITALS: BP 130/81
[2016-12-24 19:33] VITALS: BP 139/84
[2016-12-24 23:19] VITALS: BP 125/74
[2016-12-25 03:13] VITALS: BP 128/79
[2016-12-25 09:01] VITALS: BP 136/78
[2016-12-25 13:31] VITALS: BP 136/78
[2016-12-25] MEDS ORDERED: NICOTINE PATCH1 EAC2 TD (14:41)
[2016-12-25] MEDS ORDERED: FAMOTIDINE20 MG PO (14:43)
[2016-12-25] MEDS ORDERED: REGLAN10 MG PO (14:44)
[2016-12-25] MEDS ORDERED: ZOFRAN4 MG PO (14:44)
[2016-12-25] MEDS ORDERED: TRILEPTAL150 MG PO (14:45)
== END 2016-12-25 15:55 | disposition home or self-care (01) | DRG 418 ==
LOC: EME 06:00 → 3EAST 08:26 → 5SOUTH 08:26 → EDOF 08:26 → 3EAST 10:15 → 5SOUTH 12-19 21:45
PROVIDERS: Emergency Medicine; Hospitalist; Internal Medicine; Physician Assistant; Specialist; Student in an Organized Health Care Education/Training Program; Surgery
PROC: 0FT44ZZ Resection of Gallbladder, Percutaneous Endoscopic Approach (ICD-10-PCS; principal; 2016-12-23)
DX: K85.21 Alcohol induced acute pancreatitis with uninfected necrosis (principal); K86.0 Alcohol-induced chronic pancreatitis; F10.21 Alcohol dependence, in remission; N39.0 Urinary tract infection, site not specified; B96.20 Unspecified Escherichia coli [E. coli] as the cause of diseases classified elsewhere; G89.4 Chronic pain syndrome; M79.7 Fibromyalgia; F31.9 Bipolar disorder, unspecified; L50.0 Allergic urticaria; T40.2X5A Adverse effect of other opioids, initial encounter; I10 Essential (primary) hypertension; D64.9 Anemia, unspecified; K21.9 Gastro-esophageal reflux disease without esophagitis; J44.9 Chronic obstructive pulmonary disease, unspecified; M19.90 Unspecified osteoarthritis, unspecified site; K58.1 Irritable bowel syndrome with constipation; F17.210 Nicotine dependence, cigarettes, uncomplicated; Z71.6 Tobacco abuse counseling; Z86.711 Personal history of pulmonary embolism; Z86.718 Personal history of other venous thrombosis and embolism; Z79.01 Long term (current) use of anticoagulants; E66.9 Obesity, unspecified; Z68.29 Body mass index [BMI] 29.0-29.9, adult; Z87.19 Personal history of other diseases of the digestive system; Z79.891 Long term (current) use of opiate analgesic; Z91.5 Personal history of self-harm; Z91.19 Patient's noncompliance with other medical treatment and regimen
CPT/HCPCS: 71020; 74183; 76705; 76937; 80048; 80053; 81003; 82728; 83036; 83540; 83690; 83735; 84466; 85025; 85027; 87070; 87077; 87086; 87186; 87205; 88304; 94640; 94640 76; 94760; 99202; 99281; 99285; C9113; G0480; J0295; J0330; J0360; J1100; J1170; J1644; J1650; J1885; J2060; J2175; J2250; J2270; J2405; J2710; J2765; J3010; J3480; J7030; J7042; J7050; S0020; S0028

== ENCOUNTER 2017-01-11 09:15 | Inpatient (IN) | payer OTHER ==
[~2017-01-11] VITALS: Ht 167.6 cm; Wt 81.0 kg
[~2017-01-11 09:15] MED LIST changes: +FAMOTIDINE20 MG PO; +LAMICTAL200 MG PO; +OXYCODONE-APAP1 EACH PO; +PROBIOTIC1 EAC3 PO; +REGLAN10 MG PO; +TRILEPTAL150 MG PO
[2017-01-11 10:16] LABS: EOSINOPHIL (%) 0.3 % (0-5); HEMATOCRIT 37.6 % (36.0-46.0); IMMATURE GRANULOCYTE (%) 0.4 % (0.0-0.7); IMMATURE GRANULOCYTE COUNT 0.1 K/uL; INSTRUMENT ABS NEUTROPHIL CT 13.3 K/uL; LYMPHOCYTE COUNT 0.7 K/uL (1.0-2.8); MCH 30.4 PG (29.0-34.0); MCHC 33.5 G/DL (30.0-36.0); MONOCYTE (%) 4.5 % (3-12); MONOCYTE COUNT 0.7 K/uL (0-0.8); NEUTROPHIL COUNT 13.3 K/uL (1.8-6.4); RBC DIS.WIDTH-CV 15.7 % (11.8-14.6); RBC DIS.WIDTH-SD 51.2 % (39-53); WHITE BLOOD COUNT 14.7 K/uL (4.1-10.2)
[2017-01-11 10:34] LABS: CHLORIDE 99 mEq/L (99-109); SODIUM 133 mEq/L (136-147)
[2017-01-11 10:36] LABS: GLUCOSE 127 mg/dL (70-99)
[2017-01-11 10:38] LABS: ANION GAP 12 MEQ/L (2-14); TOTAL BILIRUBIN 0.4 mg/dL (0.0-1.0)
[2017-01-11 10:39] LABS: MCV 90.6 FL (83-99); RED BLOOD COUNT 4.15 M/uL (3.80-5.20)
[2017-01-11 10:40] LABS: ALKALINE PHOSPHATASE 91 IU/L (3-129); GFR ESTIMATE (CALCULATED) > 59 mL/min/
[2017-01-11 10:41] LABS: UREA NITROGEN (BUN) 5 mg/dL (9-23)
[2017-01-11 10:44] LABS: LIPASE 122 U/L (1.0-51.0)
[2017-01-11 10:51] LABS: QUANTITATIVE HCG < 4.0 MIU/ML
[2017-01-11 11:28] LABS: LACTATE DEHYDROGENASE 156 IU/L (20-246)
[2017-01-11 11:35] LABS: MEAN PLAT.VOLUME 9.6 uM^3 (9.5-12.4); PLAT.SUFFICIENCY ADEQUATE
[2017-01-11 11:39] LABS: PLATELET COUNT 264 K/uL (156-360)
[2017-01-11 11:41] LABS: ADD MIUA? NO; BILIRUBIN NEGATIVE; BLOOD NEGATIVE; COLOR YELLOW ((YELLOW)); GLUCOSE (STRIP) NEGATIVE; KETONES 5; LEUKOCYTES NEGATIVE; NITRITE NEGATIVE; PROTEIN (STRIP) NEGATIVE; SPECIFIC GRAVITY 1.039 (1.000-1.030); UCUL ADDED? NO; UROBILINOGEN 0.2 MG/DL (0.2-1.0)
[2017-01-11] MEDS ORDERED: METOCLOPRAMIDE10 MG PO (13:15)
[2017-01-11] MEDS ORDERED: NICOTINE PATCH1 EAC2 TD (13:17)
[2017-01-11] MEDS ORDERED: DOXEPIN HCL25 MG PO (13:24)
[2017-01-11 17:23] VITALS: BP 130/75
[2017-01-11 19:55] VITALS: BP 134/82
[2017-01-12] VITALS (7 sets, daily range): BP systolic 107–153; BP diastolic 66–92
[2017-01-12 07:35] LABS: ANION GAP 6 MEQ/L (2-14); CHLORIDE 106 MEQ/L (99-109); GFR ESTIMATE (CALCULATED) > 59 mL/min/; GLUCOSE 97 mg/dL (70-99); LIPASE 85 U/L (1.0-51.0); POTASSIUM 3.3 MEQ/L (3.7-5.4); SAMPLE HEMOLYSIS CHECK 0; SAMPLE ICTERIC CHECK 0; SAMPLE LIPEMIA CHECK 0; SODIUM 139 MEQ/L (136-147); UREA NITROGEN (BUN) 2 mg/dL (9-23)
[2017-01-12 07:56] LABS: HEMATOCRIT 33.8 % (36.0-46.0); MCH 30.3 PG (29.0-34.0); MEAN PLAT.VOLUME 9.6 uM^3 (9.5-12.4); PLATELET COUNT 220 K/uL (156-360); RBC DIS.WIDTH-CV 15.9 % (11.8-14.6); RBC DIS.WIDTH-SD 54.1 % (39-53); RED BLOOD COUNT 3.56 M/uL (3.80-5.20)
[2017-01-12 07:58] LABS: MCV 94.9 FL (83-99); WHITE BLOOD COUNT 5.4 K/uL (4.1-10.2)
[2017-01-13 04:00] VITALS: BP 155/93
[2017-01-13 07:17] LABS: EOSINOPHIL COUNT 0.3 K/uL (0-0.3); IMMATURE GRANULOCYTE (%) 0.2 % (0.0-0.7); INSTRUMENT ABS NEUTROPHIL CT 2.5 K/uL; LYMPHOCYTE COUNT 1.2 K/uL (1.0-2.8); MCH 30.5 PG (29.0-34.0); MCHC 32.1 G/DL (30.0-36.0); MCV 95.1 FL (83-99); MEAN PLAT.VOLUME 9.9 uM^3 (9.5-12.4); MONOCYTE (%) 11.1 % (3-12); MONOCYTE COUNT 0.5 K/uL (0-0.8); NEUTROPHIL COUNT 2.5 K/uL (1.8-6.4); PLATELET COUNT 232 K/uL (156-360); RBC DIS.WIDTH-CV 15.9 % (11.8-14.6); RBC DIS.WIDTH-SD 55.2 % (39-53); RED BLOOD COUNT 3.47 M/uL (3.80-5.20); WHITE BLOOD COUNT 4.6 K/uL (4.1-10.2)
[2017-01-13 07:41] VITALS: BP 136/87
[2017-01-13 07:57] LABS: ALKALINE PHOSPHATASE 74 IU/L (3-129); ANION GAP 8 MEQ/L (2-14); CHLORIDE 108 MEQ/L (99-109); GFR ESTIMATE (CALCULATED) > 59 mL/min/; GLUCOSE 115 mg/dL (70-99); LIPASE 44 U/L (1.0-51.0); POTASSIUM 3.6 MEQ/L (3.7-5.4); SAMPLE HEMOLYSIS CHECK 0; SAMPLE ICTERIC CHECK 0; SAMPLE LIPEMIA CHECK 0; SODIUM 141 MEQ/L (136-147); TOTAL BILIRUBIN 0.3 MG/DL (0.0-1.0); UREA NITROGEN (BUN) < 2 mg/dL (9-23)
[2017-01-13] MEDS ORDERED: OXYCODONE-APAP1 EACH PO ×2 (14:00→14:12)
== END 2017-01-13 14:51 | disposition home or self-care (01) | DRG 439 ==
LOC: EME → EDBD 09:15 → EME 09:15 → 5SOUTH 12:40 → EDOF 12:40 → 5SOUTH 17:08
PROVIDERS: Emergency Medicine; Hospitalist; Internal Medicine Gastroenterology
DX: K85.90 Acute pancreatitis without necrosis or infection, unspecified (principal); R65.10 Systemic inflammatory response syndrome (SIRS) of non-infectious origin without acute organ dysfunction; F33.9 Major depressive disorder, recurrent, unspecified; E87.6 Hypokalemia; E86.0 Dehydration; G89.4 Chronic pain syndrome; K86.1 Other chronic pancreatitis; F17.210 Nicotine dependence, cigarettes, uncomplicated; G47.00 Insomnia, unspecified; J43.9 Emphysema, unspecified; F41.9 Anxiety disorder, unspecified; K86.89 Other specified diseases of pancreas; G43.909 Migraine, unspecified, not intractable, without status migrainosus; M79.7 Fibromyalgia; I10 Essential (primary) hypertension; K21.9 Gastro-esophageal reflux disease without esophagitis; Z86.711 Personal history of pulmonary embolism; Z88.5 Allergy status to narcotic agent; Z82.49 Family history of ischemic heart disease and other diseases of the circulatory system
CPT/HCPCS: 74177; 80048; 80053; 81003; 83615; 83690; 84702; 85025; 85027; 94640; 94640 76; 99281; 99285; J0780; J1170; J1200; J1644; J1885; J2270; J2405; J2765; J3480; J7030; J7042; J7050; S0028

== ENCOUNTER 2017-01-16 20:45 | Inpatient (IN) | payer OTHER ==
[~2017-01-16] VITALS: Ht 167.6 cm; Wt 80.8 kg
[~2017-01-16 20:45] MED LIST changes: +DOXEPIN HCL25 MG PO; +METOCLOPRAMIDE10 MG PO
[2017-01-16 22:33] LABS: CHLORIDE 90 mEq/L (99-109); POTASSIUM 3.9 mEq/L (3.7-5.4)
[2017-01-16 22:35] LABS: EOSINOPHIL (%) 0.2 % (0-5); HEMATOCRIT 38.7 % (36.0-46.0); IMMATURE GRANULOCYTE (%) 0.4 % (0.0-0.7); INSTRUMENT ABS NEUTROPHIL CT 7.2 K/uL; LYMPHOCYTE COUNT 0.8 K/uL (1.0-2.8); MCH 29.9 PG (29.0-34.0); MCHC 33.3 G/DL (30.0-36.0); MCV 89.8 FL (83-99); MEAN PLAT.VOLUME 8.9 uM^3 (9.5-12.4); MONOCYTE (%) 13.7 % (3-12); MONOCYTE COUNT 1.3 K/uL (0-0.8); NEUTROPHIL (%) 77.4 % (45-76); NEUTROPHIL COUNT 7.2 K/uL (1.8-6.4); PLATELET COUNT 395 K/uL (156-360); RBC DIS.WIDTH-SD 52.5 % (39-53); RED BLOOD COUNT 4.31 M/uL (3.80-5.20); WHITE BLOOD COUNT 9.3 K/uL (4.1-10.2)
[2017-01-16 22:36] LABS: GLUCOSE 141 mg/dL (70-99)
[2017-01-16 22:37] LABS: ANION GAP 14 MEQ/L (2-14)
[2017-01-16 22:39] LABS: ALKALINE PHOSPHATASE 92 IU/L (3-129); SERUM ETHYL ALCOHOL < 10 mg/dL
[2017-01-16 22:40] LABS: GFR ESTIMATE (CALCULATED) > 59 mL/min/
[2017-01-16 22:41] LABS: UREA NITROGEN (BUN) 7 mg/dL (9-23)
[2017-01-16 22:43] LABS: LIPASE 29 U/L (1.0-51.0)
[2017-01-16 22:46] LABS: SODIUM 128 mEq/L (136-147); TOTAL BILIRUBIN 0.5 mg/dL (0.0-1.0)
[2017-01-17] MEDS ORDERED: CLONIDINE HCL0.1 MG PO (00:36)
[2017-01-17] MEDS ORDERED: LAMICTAL200 MG PO (00:37)
[2017-01-17 02:05] VITALS: BP 138/88
[2017-01-17 04:15] VITALS: BP 145/84
[2017-01-17 07:37] VITALS: BP 118/78
[2017-01-17 09:35] LABS: HEMATOCRIT 35.1 % (36.0-46.0); MCH 30.3 PG (29.0-34.0); MCHC 32.8 G/DL (30.0-36.0); MCV 92.6 FL (83-99); MEAN PLAT.VOLUME 9.2 uM^3 (9.5-12.4); PLATELET COUNT 350 K/uL (156-360); RBC DIS.WIDTH-CV 16.5 % (11.8-14.6); RBC DIS.WIDTH-SD 55.8 % (39-53); RED BLOOD COUNT 3.79 M/uL (3.80-5.20); WHITE BLOOD COUNT 7.4 K/uL (4.1-10.2)
[2017-01-17 09:48] LABS: ANION GAP 8 MEQ/L (2-14); GFR ESTIMATE (CALCULATED) > 59 mL/min/; GLUCOSE 109 mg/dL (70-99); POTASSIUM 3.6 MEQ/L (3.7-5.4); SAMPLE HEMOLYSIS CHECK 0; SAMPLE ICTERIC CHECK 0; SAMPLE LIPEMIA CHECK 0; SODIUM 133 MEQ/L (136-147); UREA NITROGEN (BUN) 7 mg/dL (9-23)
[2017-01-17 09:53] LABS: CHLORIDE 96 MEQ/L (99-109)
[2017-01-17 15:59] VITALS: BP 126/73
[2017-01-17 16:38] LABS: C-REACTIVE PROTEIN 2.5 MG/L (0-10)
[2017-01-17 23:46] VITALS: BP 116/62
[2017-01-18 03:50] VITALS: BP 125/72
[2017-01-18 15:22] VITALS: BP 126/74
[2017-01-18 20:00] VITALS: BP 143/72
[2017-01-18 23:46] VITALS: BP 128/88
[2017-01-19 04:18] VITALS: BP 126/82
[2017-01-19 08:35] VITALS: BP 124/84
[2017-01-19 10:03] LABS: ANION GAP 7 MEQ/L (2-14); CHLORIDE 102 MEQ/L (99-109); GFR ESTIMATE (CALCULATED) > 59 mL/min/; GLUCOSE 97 mg/dL (70-99); POTASSIUM 3.8 MEQ/L (3.7-5.4); SAMPLE HEMOLYSIS CHECK 0; SAMPLE ICTERIC CHECK 0; SAMPLE LIPEMIA CHECK 0; SODIUM 139 MEQ/L (136-147); UREA NITROGEN (BUN) 6 mg/dL (9-23)
[2017-01-19] MEDS ORDERED: DICYCLOMINE HCL10 MG PO (11:01)
[2017-01-19] MEDS ORDERED: PROTONIX40 MG PO (11:02)
[2017-01-19] MEDS ORDERED: PHENERGAN25 MG PR (11:03)
[2017-01-19] MEDS ORDERED: OXYCODONE HCL10 MG PO (11:04)
[2017-01-19 12:02] VITALS: BP 144/96
[2017-01-19 15:14] VITALS: BP 124/84
== END 2017-01-19 15:58 | disposition home or self-care (01) | DRG 439 ==
LOC: EME 20:45 → EDOF 01-17 00:13 → 5WEST 01-17 00:13 → EDOF 01-17 00:13 → 5WEST 01-17 01:53
PROVIDERS: Emergency Medicine; Hospitalist; Nurse Practitioner Adult Health
PROC: 0DJ08ZZ Inspection of Upper Intestinal Tract, Via Natural or Artificial Opening Endoscopic (ICD-10-PCS; principal; 2017-01-17)
DX: K85.81 Other acute pancreatitis with uninfected necrosis (principal); G89.29 Other chronic pain; I10 Essential (primary) hypertension; K86.1 Other chronic pancreatitis; K22.10 Ulcer of esophagus without bleeding; F41.8 Other specified anxiety disorders; K21.0 Gastro-esophageal reflux disease with esophagitis; F17.210 Nicotine dependence, cigarettes, uncomplicated; E87.1 Hypo-osmolality and hyponatremia; E87.8 Other disorders of electrolyte and fluid balance, not elsewhere classified; E87.6 Hypokalemia; K86.3 Pseudocyst of pancreas; J44.9 Chronic obstructive pulmonary disease, unspecified; M79.7 Fibromyalgia; Z86.711 Personal history of pulmonary embolism; Z86.718 Personal history of other venous thrombosis and embolism; G62.9 Polyneuropathy, unspecified
CPT/HCPCS: 74176; 80048; 80053; 83690; 85025; 85027; 86140; 87493; 94640; 94640 76; 94760; 99202; 99281; 99285; C9113; G0480; J1170; J1650; J1885; J2250; J2270; J2405; J2765; J3010; J7030; J7120

== ENCOUNTER 2017-01-22 20:05 | Emergency (ER) | payer OTHER ==
[~2017-01-22] VITALS: Ht 167.6 cm; Wt 79.3 kg
[~2017-01-22 20:05] MED LIST changes: +DICYCLOMINE HCL10 MG PO; +OXYCODONE HCL10 MG PO; +PHENERGAN25 MG PR
[2017-01-22 21:01] LABS: HEMATOCRIT 44.2 % (36.0-46.0); MCH 30.2 PG (29.0-34.0); MCHC 33.3 G/DL (30.0-36.0); MCV 90.9 FL (83-99); MEAN PLAT.VOLUME 8.9 uM^3 (9.5-12.4); PLATELET COUNT 579 K/uL (156-360); RBC DIS.WIDTH-CV 15.9 % (11.8-14.6); RBC DIS.WIDTH-SD 52.6 % (39-53); RED BLOOD COUNT 4.86 M/uL (3.80-5.20); WHITE BLOOD COUNT 11.1 K/uL (4.1-10.2)
[2017-01-22 21:08] LABS: CHLORIDE 96 mEq/L (99-109); POTASSIUM 3.8 mEq/L (3.7-5.4); SODIUM 134 mEq/L (136-147)
[2017-01-22 21:11] LABS: GLUCOSE 131 mg/dL (70-99)
[2017-01-22 21:12] LABS: ANION GAP 17 MEQ/L (2-14); TOTAL BILIRUBIN 0.5 mg/dL (0.0-1.0)
[2017-01-22 21:14] LABS: ALKALINE PHOSPHATASE 80 IU/L (3-129); GFR ESTIMATE (CALCULATED) > 59 mL/min/
[2017-01-22 21:15] LABS: UREA NITROGEN (BUN) 11 mg/dL (9-23)
[2017-01-22 21:18] LABS: LIPASE 17 U/L (1.0-51.0)
[2017-01-22 21:23] LABS: QUANTITATIVE HCG < 4.0 MIU/ML
[2017-01-22] MEDS ORDERED: REGLAN10 MG PO (22:46)
[2017-01-22 23:02] VITALS: BP 169/99
== END 2017-01-22 23:19 | disposition home or self-care (01) ==
LOC: EME → EDBD 20:05 → EME 20:49
DX: K85.90 Acute pancreatitis without necrosis or infection, unspecified (principal); K86.1 Other chronic pancreatitis; R11.2 Nausea with vomiting, unspecified; E86.0 Dehydration; I10 Essential (primary) hypertension; J44.9 Chronic obstructive pulmonary disease, unspecified; Z90.49 Acquired absence of other specified parts of digestive tract; F17.200 Nicotine dependence, unspecified, uncomplicated
CPT/HCPCS: 74176; 80053; 81003; 83690; 84702; 85027; 99281; 99284; J1885; J2060; J2270; J2765; J7030; J7050

== ENCOUNTER 2017-05-14 06:24 | Emergency (ER) | payer OTHER ==
[~2017-05-14] VITALS: Ht 167.6 cm; Wt 81.6 kg
[2017-05-14 07:28] LABS: EOSINOPHIL (%) 4.4 % (0-5); EOSINOPHIL COUNT 0.3 K/uL (0-0.3); HEMATOCRIT 36.1 % (36.0-46.0); IMMATURE GRANULOCYTE (%) 0.4 % (0.0-0.7); INSTRUMENT ABS NEUTROPHIL CT 4.6 K/uL; MCH 33.5 PG (29.0-34.0); MCV 101.7 FL (83-99); MEAN PLAT.VOLUME 8.8 uM^3 (9.5-12.4); MONOCYTE (%) 11.2 % (3-12); MONOCYTE COUNT 0.8 K/uL (0-0.8); NEUTROPHIL (%) 68.5 % (45-76); NEUTROPHIL COUNT 4.6 K/uL (1.8-6.4); PLATELET COUNT 388 K/uL (156-360); RBC DIS.WIDTH-CV 16.7 % (11.8-14.6); RED BLOOD COUNT 3.55 M/uL (3.80-5.20); WHITE BLOOD COUNT 6.8 K/uL (4.1-10.2)
[2017-05-14 08:00] LABS: ALKALINE PHOSPHATASE 109 IU/L (3-129); ANION GAP 10 MEQ/L (2-14); CHLORIDE 101 MEQ/L (99-109); GFR ESTIMATE (CALCULATED) > 59 mL/min/; GLUCOSE 101 mg/dL (70-99); LIPASE 78 U/L (1.0-51.0); POTASSIUM 3.6 MEQ/L (3.7-5.4); SAMPLE HEMOLYSIS CHECK 0; SAMPLE ICTERIC CHECK 0; SAMPLE LIPEMIA CHECK 0; SODIUM 140 MEQ/L (136-147); TOTAL BILIRUBIN 0.4 MG/DL (0.0-1.0); UREA NITROGEN (BUN) 3 mg/dL (9-23)
[2017-05-14 10:02] LABS: ADD MIUA? NO; BILIRUBIN NEGATIVE; BLOOD NEGATIVE; COLOR YELLOW ((YELLOW)); GLUCOSE (STRIP) NEGATIVE; KETONES NEGATIVE; LEUKOCYTES NEGATIVE; NITRITE NEGATIVE; PROTEIN (STRIP) NEGATIVE; SPECIFIC GRAVITY 1.006 (1.000-1.030); UCUL ADDED? NO; UROBILINOGEN 0.2 MG/DL (0.2-1.0)
[2017-05-14 10:59] VITALS: BP 140/80
== END 2017-05-14 11:20 | disposition home or self-care (01) ==
LOC: EME 06:24
PROVIDERS: Emergency Medicine
DX: M54.5 Low back pain (principal); R10.13 Epigastric pain; R74.8 Abnormal levels of other serum enzymes; K86.1 Other chronic pancreatitis; I10 Essential (primary) hypertension; K21.9 Gastro-esophageal reflux disease without esophagitis; F32.9 Major depressive disorder, single episode, unspecified; M79.7 Fibromyalgia; J44.9 Chronic obstructive pulmonary disease, unspecified; G89.29 Other chronic pain; F41.9 Anxiety disorder, unspecified; Z86.711 Personal history of pulmonary embolism; F17.200 Nicotine dependence, unspecified, uncomplicated
CPT/HCPCS: 80053; 81003; 83690; 85025; 93005; 93970; 99281; 99284; J1885; J2270; J7030

== ENCOUNTER 2017-05-17 16:20 | Emergency (ER) | payer OTHER ==
[~2017-05-17] VITALS: Ht 167.6 cm; Wt 77.2 kg
[2017-05-17 17:11] LABS: HEMATOCRIT 39.7 % (36.0-46.0); MCH 33.4 PG (29.0-34.0); MCHC 34.3 G/DL (30.0-36.0); MEAN PLAT.VOLUME 8.9 uM^3 (9.5-12.4); RBC DIS.WIDTH-CV 15.9 % (11.8-14.6); RBC DIS.WIDTH-SD 56.7 % (39-53); RED BLOOD COUNT 4.07 M/uL (3.80-5.20); WHITE BLOOD COUNT 8.5 K/uL (4.1-10.2)
[2017-05-17 17:17] LABS: CHLORIDE 96 mEq/L (99-109); SODIUM 136 mEq/L (136-147)
[2017-05-17 17:20] LABS: GLUCOSE 120 mg/dL (70-99); POTASSIUM 2.7 mEq/L (3.7-5.4)
[2017-05-17 17:21] LABS: ANION GAP 17 MEQ/L (2-14); TOTAL BILIRUBIN 0.4 mg/dL (0.0-1.0)
[2017-05-17 17:22] LABS: MCV 97.5 FL (83-99); PLATELET COUNT 586 K/uL (156-360)
[2017-05-17 17:23] LABS: ALKALINE PHOSPHATASE 115 IU/L (3-129); GFR ESTIMATE (CALCULATED) > 59 mL/min/
[2017-05-17 17:24] LABS: UREA NITROGEN (BUN) 2 mg/dL (9-23)
[2017-05-17 17:27] LABS: LIPASE 52 U/L (1.0-51.0)
[2017-05-17 17:40] LABS: QUANTITATIVE HCG < 4.0 MIU/ML
[2017-05-17 19:14] LABS: ADD MIUA? YES; BILIRUBIN NEGATIVE; BLOOD NEGATIVE; COLOR YELLOW ((YELLOW)); GLUCOSE (STRIP) 50; KETONES 5; LEUKOCYTES NEGATIVE; NITRITE NEGATIVE; PROTEIN (STRIP) NEGATIVE; UROBILINOGEN 0.2 MG/DL (0.2-1.0)
[2017-05-17 19:17] LABS: BACTERIA RARE /HPF; EPITHELIAL CELLS NONE SEEN /HPF; MUCUS 1+ /LPF; RED BLOOD CELLS 0-5 /HPF (0-5); UCUL ADDED? NO; WHITE BLOOD CELLS 0-5 /HPF (0-5)
[2017-05-17] MEDS ORDERED: ZOFRAN ODT8 MG PO (20:20)
[2017-05-17 20:37] VITALS: BP 154/90
== END 2017-05-17 20:38 | disposition home or self-care (01) ==
LOC: EME 16:20
DX: R11.10 Vomiting, unspecified (principal); R10.9 Unspecified abdominal pain; E87.6 Hypokalemia; J44.9 Chronic obstructive pulmonary disease, unspecified; I10 Essential (primary) hypertension; K21.9 Gastro-esophageal reflux disease without esophagitis; R56.9 Unspecified convulsions; Z86.711 Personal history of pulmonary embolism; F17.200 Nicotine dependence, unspecified, uncomplicated
CPT/HCPCS: 80053; 81003; 83690; 84702; 85027; 93005; 99281; 99285; J0780; J2270; J2405; J7030

== ENCOUNTER 2017-05-21 08:08 | Inpatient (IN) | payer OTHER ==
[~2017-05-21] VITALS: Ht 165.1 cm; Wt 78.3 kg
[~2017-05-21 08:08] MED LIST changes: +ZOFRAN ODT8 MG PO
[2017-05-21 08:45] LABS: EOSINOPHIL (%) 0.4 % (0-5); HEMATOCRIT 37.7 % (36.0-46.0); IMMATURE GRANULOCYTE (%) 0.6 % (0.0-0.7); IMMATURE GRANULOCYTE COUNT 0.1 K/uL; INSTRUMENT ABS NEUTROPHIL CT 6.8 K/uL; LYMPHOCYTE COUNT 0.8 K/uL (1.0-2.8); MCH 33.3 PG (29.0-34.0); MCV 95.2 FL (83-99); MEAN PLAT.VOLUME 8.4 uM^3 (9.5-12.4); MONOCYTE (%) 7.3 % (3-12); MONOCYTE COUNT 0.6 K/uL (0-0.8); NEUTROPHIL (%) 81.9 % (45-76); NEUTROPHIL COUNT 6.8 K/uL (1.8-6.4); PLATELET COUNT 594 K/uL (156-360); RBC DIS.WIDTH-CV 15.4 % (11.8-14.6); RBC DIS.WIDTH-SD 54.1 % (39-53); RED BLOOD COUNT 3.96 M/uL (3.80-5.20); WHITE BLOOD COUNT 8.2 K/uL (4.1-10.2)
[2017-05-21 08:56] LABS: CHLORIDE 93 mEq/L (99-109); POTASSIUM 2.6 mEq/L (3.7-5.4); SODIUM 132 mEq/L (136-147)
[2017-05-21 08:59] LABS: GLUCOSE 137 mg/dL (70-99)
[2017-05-21 09:00] LABS: ANION GAP 13 MEQ/L (2-14)
[2017-05-21 09:01] LABS: TOTAL BILIRUBIN 0.3 mg/dL (0.0-1.0)
[2017-05-21 09:02] LABS: ALKALINE PHOSPHATASE 106 IU/L (3-129)
[2017-05-21 09:03] LABS: GFR ESTIMATE (CALCULATED) > 59 mL/min/
[2017-05-21 09:04] LABS: UREA NITROGEN (BUN) 3 mg/dL (9-23)
[2017-05-21 09:06] LABS: LIPASE 894 U/L (1.0-51.0)
[2017-05-21 10:01] LABS: SERUM ETHYL ALCOHOL 75 mg/dL
[2017-05-21 10:22] LABS: ADD MIUA? NO; BILIRUBIN NEGATIVE; BLOOD NEGATIVE; COLOR STRAW ((YELLOW)); GLUCOSE (STRIP) NEGATIVE; KETONES NEGATIVE; LEUKOCYTES NEGATIVE; NITRITE NEGATIVE; PROTEIN (STRIP) NEGATIVE; SPECIFIC GRAVITY 1.003 (1.000-1.030); UROBILINOGEN 0.2 MG/DL (0.2-1.0)
[2017-05-21 11:00] VITALS: BP 131/88
[2017-05-21 11:01] LABS: MAGNESIUM 1.7 mg/dL (1.3-2.7)
[2017-05-21 16:00] VITALS: BP 135/81
[2017-05-21] MEDS ORDERED: OXYCODONE HCL10 MG PO (16:30)
[2017-05-21] MEDS ORDERED: PROTONIX40 MG PO (16:32)
[2017-05-21 20:09] VITALS: BP 131/80
[2017-05-21 23:32] VITALS: BP 143/80
[2017-05-22 03:25] VITALS: BP 140/78
[2017-05-22 06:33] LABS: HEMATOCRIT 33.5 % (36.0-46.0); MCH 33.8 PG (29.0-34.0); MCHC 33.1 G/DL (30.0-36.0); MEAN PLAT.VOLUME 8.9 uM^3 (9.5-12.4); PLATELET COUNT 493 K/uL (156-360); RBC DIS.WIDTH-CV 15.8 % (11.8-14.6); RED BLOOD COUNT 3.28 M/uL (3.80-5.20); WHITE BLOOD COUNT 7.9 K/uL (4.1-10.2)
[2017-05-22 06:38] LABS: MCV 102.1 FL (83-99)
[2017-05-22 07:03] LABS: ALKALINE PHOSPHATASE 76 IU/L (3-129); ANION GAP 5 MEQ/L (2-14); CHLORIDE 105 MEQ/L (99-109); GFR ESTIMATE (CALCULATED) > 59 mL/min/; SAMPLE HEMOLYSIS CHECK 0; SAMPLE ICTERIC CHECK 0; SAMPLE LIPEMIA CHECK 0; SODIUM 137 MEQ/L (136-147); TOTAL BILIRUBIN 0.3 MG/DL (0.0-1.0); UREA NITROGEN (BUN) 3 mg/dL (9-23)
[2017-05-22 07:04] LABS: GLUCOSE 99 mg/dL (70-99); POTASSIUM 3.8 MEQ/L (3.7-5.4)
[2017-05-22 07:27] VITALS: BP 123/68
[2017-05-22 11:08] VITALS: BP 133/84
[2017-05-22 15:15] VITALS: BP 132/87
[2017-05-22 20:18] VITALS: BP 137/80
[2017-05-22 23:35] VITALS: BP 117/81
[2017-05-23 03:20] VITALS: BP 127/87
[2017-05-23 06:27] LABS: HEMATOCRIT 39.4 % (36.0-46.0); MCH 32.2 PG (29.0-34.0); MCHC 31.7 G/DL (30.0-36.0); MCV 101.5 FL (83-99); MEAN PLAT.VOLUME 8.7 uM^3 (9.5-12.4); PLATELET COUNT 550 K/uL (156-360); RBC DIS.WIDTH-CV 15.9 % (11.8-14.6); RBC DIS.WIDTH-SD 59.7 % (39-53); RED BLOOD COUNT 3.88 M/uL (3.80-5.20)
[2017-05-23 06:51] LABS: ALKALINE PHOSPHATASE 107 IU/L (3-129); ANION GAP 9 MEQ/L (2-14); CHLORIDE 101 MEQ/L (99-109); GFR ESTIMATE (CALCULATED) > 59 mL/min/; GLUCOSE 78 mg/dL (70-99); LIPASE 434 U/L (1.0-51.0); POTASSIUM 3.2 MEQ/L (3.7-5.4); SAMPLE HEMOLYSIS CHECK 0; SAMPLE ICTERIC CHECK 0; SAMPLE LIPEMIA CHECK 0; SODIUM 138 MEQ/L (136-147); TOTAL BILIRUBIN 0.8 MG/DL (0.0-1.0); UREA NITROGEN (BUN) 3 mg/dL (9-23)
[2017-05-23 07:46] VITALS: BP 147/88
[2017-05-23 09:08] VITALS: BP 112/77
[2017-05-23 15:49] VITALS: BP 134/99
[2017-05-23 20:05] VITALS: BP 109/83
[2017-05-24] VITALS (7 sets, daily range): BP systolic 121–187; BP diastolic 72–100
[2017-05-24 06:07] LABS: MCH 33.1 PG (29.0-34.0); MCHC 32.6 G/DL (30.0-36.0); MCV 101.5 FL (83-99); PLATELET COUNT 480 K/uL (156-360); RBC DIS.WIDTH-CV 15.9 % (11.8-14.6); RED BLOOD COUNT 3.35 M/uL (3.80-5.20); WHITE BLOOD COUNT 11.9 K/uL (4.1-10.2)
[2017-05-24 07:00] LABS: ALKALINE PHOSPHATASE 85 IU/L (3-129); ANION GAP 6 MEQ/L (2-14); CHLORIDE 102 MEQ/L (99-109); GFR ESTIMATE (CALCULATED) > 59 mL/min/; LIPASE 287 U/L (1.0-51.0); POTASSIUM 3.8 MEQ/L (3.7-5.4); SAMPLE HEMOLYSIS CHECK 0; SAMPLE ICTERIC CHECK 0; SAMPLE LIPEMIA CHECK 0; SODIUM 139 MEQ/L (136-147); UREA NITROGEN (BUN) 2 mg/dL (9-23)
[2017-05-24 07:11] LABS: GLUCOSE 110 mg/dL (70-99); TOTAL BILIRUBIN 0.6 MG/DL (0.0-1.0)
[2017-05-25 03:57] VITALS: BP 140/75
[2017-05-25 10:06] VITALS: BP 136/74
[2017-05-25 11:04] VITALS: BP 142/70
[2017-05-25 16:27] VITALS: BP 142/77
[2017-05-25 19:39] VITALS: BP 129/69
[2017-05-25 23:22] VITALS: BP 128/86
[2017-05-26 03:52] VITALS: BP 132/79
[2017-05-26 06:38] LABS: EOSINOPHIL (%) 1.8 % (0-5); EOSINOPHIL COUNT 0.2 K/uL (0-0.3); HEMATOCRIT 34.9 % (36.0-46.0); IMMATURE GRANULOCYTE (%) 0.4 % (0.0-0.7); IMMATURE GRANULOCYTE COUNT 0.1 K/uL; INSTRUMENT ABS NEUTROPHIL CT 9.5 K/uL; LYMPHOCYTE COUNT 1.3 K/uL (1.0-2.8); MCH 32.3 PG (29.0-34.0); MCHC 30.7 G/DL (30.0-36.0); MCV 105.4 FL (83-99); MEAN PLAT.VOLUME 9.1 uM^3 (9.5-12.4); MONOCYTE (%) 8.2 % (3-12); NEUTROPHIL (%) 78.9 % (45-76); NEUTROPHIL COUNT 9.5 K/uL (1.8-6.4); PLATELET COUNT 473 K/uL (156-360); RBC DIS.WIDTH-CV 15.9 % (11.8-14.6); RBC DIS.WIDTH-SD 62.4 % (39-53); RED BLOOD COUNT 3.31 M/uL (3.80-5.20)
[2017-05-26 07:11] LABS: ALKALINE PHOSPHATASE 77 IU/L (3-129); ANION GAP 7 MEQ/L (2-14); CHLORIDE 105 MEQ/L (99-109); GFR ESTIMATE (CALCULATED) > 59 mL/min/; GLUCOSE 94 mg/dL (70-99); POTASSIUM 3.4 MEQ/L (3.7-5.4); SAMPLE HEMOLYSIS CHECK 0; SAMPLE ICTERIC CHECK 0; SAMPLE LIPEMIA CHECK 0; SODIUM 141 MEQ/L (136-147); UREA NITROGEN (BUN) 4 mg/dL (9-23)
[2017-05-26 07:12] LABS: TOTAL BILIRUBIN 0.3 MG/DL (0.0-1.0)
[2017-05-26 09:10] VITALS: BP 128/69
[2017-05-26 11:32] VITALS: BP 127/69
[2017-05-26 17:49] VITALS: BP 132/70
[2017-05-26 20:25] VITALS: BP 153/93
[2017-05-26 23:58] VITALS: BP 157/92
[2017-05-27 03:40] VITALS: BP 137/89
[2017-05-27 06:39] LABS: BASOPHIL COUNT 0.1 K/uL (0-0.1); EOSINOPHIL (%) 2.1 % (0-5); EOSINOPHIL COUNT 0.2 K/uL (0-0.3); IMMATURE GRANULOCYTE (%) 0.3 % (0.0-0.7); LYMPHOCYTE COUNT 1.2 K/uL (1.0-2.8); MCH 34.2 PG (29.0-34.0); MCHC 32.8 G/DL (30.0-36.0); MCV 104.2 FL (83-99); MEAN PLAT.VOLUME 9.1 uM^3 (9.5-12.4); MONOCYTE (%) 11.4 % (3-12); MONOCYTE COUNT 1.1 K/uL (0-0.8); NEUTROPHIL (%) 73.1 % (45-76); PLATELET COUNT 391 K/uL (156-360); RBC DIS.WIDTH-CV 15.9 % (11.8-14.6); RBC DIS.WIDTH-SD 61.5 % (39-53); RED BLOOD COUNT 3.07 M/uL (3.80-5.20); WHITE BLOOD COUNT 9.6 K/uL (4.1-10.2)
[2017-05-27 07:06] LABS: ALKALINE PHOSPHATASE 74 IU/L (3-129); ANION GAP 7 MEQ/L (2-14); CHLORIDE 105 MEQ/L (99-109); GFR ESTIMATE (CALCULATED) > 59 mL/min/; GLUCOSE 85 mg/dL (70-99); LIPASE 27 U/L (1.0-51.0); POTASSIUM 3.9 MEQ/L (3.7-5.4); SAMPLE HEMOLYSIS CHECK 0; SAMPLE ICTERIC CHECK 0; SAMPLE LIPEMIA CHECK 0; SODIUM 138 MEQ/L (136-147); TOTAL BILIRUBIN 0.5 MG/DL (0.0-1.0); UREA NITROGEN (BUN) 3 mg/dL (9-23)
[2017-05-27 08:26] VITALS: BP 131/72
[2017-05-27 11:20] VITALS: BP 112/69
[2017-05-27 11:44] VITALS: BP 112/69
[2017-05-27 17:07] VITALS: BP 140/78
[2017-05-27 20:08] VITALS: BP 140/80
[2017-05-28] VITALS: BP 149/90
[2017-05-28 03:58] VITALS: BP 143/79
[2017-05-28 06:50] LABS: EOSINOPHIL (%) 1.9 % (0-5); EOSINOPHIL COUNT 0.2 K/uL (0-0.3); IMMATURE GRANULOCYTE (%) 0.3 % (0.0-0.7); INSTRUMENT ABS NEUTROPHIL CT 6.7 K/uL; MCH 33.8 PG (29.0-34.0); MCHC 33.6 G/DL (30.0-36.0); MCV 100.6 FL (83-99); MEAN PLAT.VOLUME 9.1 uM^3 (9.5-12.4); MONOCYTE (%) 10.3 % (3-12); MONOCYTE COUNT 0.9 K/uL (0-0.8); NEUTROPHIL (%) 75.9 % (45-76); NEUTROPHIL COUNT 6.7 K/uL (1.8-6.4); PLATELET COUNT 432 K/uL (156-360); RBC DIS.WIDTH-CV 15.7 % (11.8-14.6); RBC DIS.WIDTH-SD 57.7 % (39-53); RED BLOOD COUNT 3.28 M/uL (3.80-5.20); WHITE BLOOD COUNT 8.8 K/uL (4.1-10.2)
[2017-05-28 07:16] LABS: ALKALINE PHOSPHATASE 69 IU/L (3-129); ANION GAP 8 MEQ/L (2-14); CHLORIDE 101 MEQ/L (99-109); GFR ESTIMATE (CALCULATED) > 59 mL/min/; GLUCOSE 88 mg/dL (70-99); POTASSIUM 3.9 MEQ/L (3.7-5.4); SAMPLE HEMOLYSIS CHECK 0; SAMPLE ICTERIC CHECK 0; SAMPLE LIPEMIA CHECK 0; SODIUM 141 MEQ/L (136-147); TOTAL BILIRUBIN 0.5 MG/DL (0.0-1.0); UREA NITROGEN (BUN) 3 mg/dL (9-23)
[2017-05-28 08:08] VITALS: BP 144/80
[2017-05-28 11:14] VITALS: BP 117/72
[2017-05-28 15:57] VITALS: BP 138/92
[2017-05-28 19:34] VITALS: BP 132/83
[2017-05-29 00:08] VITALS: BP 125/74
[2017-05-29 03:58] VITALS: BP 146/82
[2017-05-29 06:37] LABS: EOSINOPHIL (%) 2.2 % (0-5); EOSINOPHIL COUNT 0.2 K/uL (0-0.3); HEMATOCRIT 34.6 % (36.0-46.0); IMMATURE GRANULOCYTE (%) 0.6 % (0.0-0.7); INSTRUMENT ABS NEUTROPHIL CT 4.9 K/uL; LYMPHOCYTE COUNT 1.1 K/uL (1.0-2.8); MCH 33.6 PG (29.0-34.0); MCHC 33.2 G/DL (30.0-36.0); MCV 101.2 FL (83-99); MEAN PLAT.VOLUME 9.2 uM^3 (9.5-12.4); MONOCYTE (%) 13.8 % (3-12); NEUTROPHIL COUNT 4.9 K/uL (1.8-6.4); PLATELET COUNT 435 K/uL (156-360); RBC DIS.WIDTH-CV 15.9 % (11.8-14.6); RBC DIS.WIDTH-SD 58.6 % (39-53); RED BLOOD COUNT 3.42 M/uL (3.80-5.20); WHITE BLOOD COUNT 7.2 K/uL (4.1-10.2)
[2017-05-29 08:03] VITALS: BP 120/70
[2017-05-29] MEDS ORDERED: AMOXICILLIN500 MG PO (10:01)
[2017-05-29] MEDS ORDERED: OXYCODONE HCL10 MG PO (11:48)
== END 2017-05-29 13:10 | disposition home or self-care (01) | DRG 439 ==
LOC: EME → EDBD 08:08 → EME 08:08 → 5SOUTH 09:52 → EDOF 09:52 → ENRESERV 10:01 → 5SOUTH 11:02
PROVIDERS: Internal Medicine; Internal Medicine Gastroenterology; Physician Assistant
PROC: 0DB78ZX Excision of Stomach, Pylorus, Via Natural or Artificial Opening Endoscopic, Diagnostic (ICD-10-PCS; principal; 2017-05-21)
DX: K85.20 Alcohol induced acute pancreatitis without necrosis or infection (principal); K86.1 Other chronic pancreatitis; K22.10 Ulcer of esophagus without bleeding; M79.7 Fibromyalgia; K21.9 Gastro-esophageal reflux disease without esophagitis; I10 Essential (primary) hypertension; G89.4 Chronic pain syndrome; K04.7 Periapical abscess without sinus; K86.9 Disease of pancreas, unspecified; F41.8 Other specified anxiety disorders; F17.200 Nicotine dependence, unspecified, uncomplicated; E87.1 Hypo-osmolality and hyponatremia; K44.9 Diaphragmatic hernia without obstruction or gangrene; E86.1 Hypovolemia; E87.6 Hypokalemia; F10.20 Alcohol dependence, uncomplicated; K20.9 Esophagitis, unspecified; R07.89 Other chest pain; J98.11 Atelectasis; K86.3 Pseudocyst of pancreas; F31.9 Bipolar disorder, unspecified; A04.7 Enterocolitis due to Clostridium difficile; B37.81 Candidal esophagitis; K29.80 Duodenitis without bleeding; M47.812 Spondylosis without myelopathy or radiculopathy, cervical region; F10.10 Alcohol abuse, uncomplicated; K29.60 Other gastritis without bleeding; Z90.49 Acquired absence of other specified parts of digestive tract; Z86.718 Personal history of other venous thrombosis and embolism; Z86.711 Personal history of pulmonary embolism
CPT/HCPCS: 71020; 71275; 74177; 80053; 81003; 83690; 83735; 85025; 85027; 86301 90; 88305; 88342 TC; 93925; 94640; 94640 76; 94760; 99202; 99281; 99285; C1753; G0480; J0360; J1170; J1650; J2060; J2250; J2270; J2405; J2765; J3010; J3411; J3480; J7030; J7040; J7042; S0028

== ENCOUNTER 2017-11-12 07:06 | Emergency (ER) | payer SELFPAY ==
[~2017-11-12] VITALS: Ht 167.6 cm; Wt 75.0 kg
[~2017-11-12 07:06] MED LIST changes: +AMOXICILLIN500 MG PO
[2017-11-12] MEDS ORDERED: PERCOCET 5/31 TABLET PO (10:52)
[2017-11-12 11:57] VITALS: BP 132/89
== END 2017-11-12 11:58 | disposition home or self-care (01) ==
LOC: EME 07:06
DX: S43.005A Unspecified dislocation of left shoulder joint, initial encounter (principal); R06.00 Dyspnea, unspecified; W06.XXXA Fall from bed, initial encounter; Z86.73 Personal history of transient ischemic attack (TIA), and cerebral infarction without residual deficits; M79.7 Fibromyalgia; K21.9 Gastro-esophageal reflux disease without esophagitis; I10 Essential (primary) hypertension; F41.9 Anxiety disorder, unspecified; F10.10 Alcohol abuse, uncomplicated; F32.9 Major depressive disorder, single episode, unspecified; J44.9 Chronic obstructive pulmonary disease, unspecified; K86.1 Other chronic pancreatitis; F17.200 Nicotine dependence, unspecified, uncomplicated
CPT/HCPCS: 71100; 73030; J1885; J2270

== ENCOUNTER 2018-01-04 05:37 | Inpatient (IN) | payer OTHER ==
[~2018-01-04] VITALS: Ht 167.6 cm; Wt 72.4 kg
[2018-01-04 06:41] LABS: HEMATOCRIT 38.7 % (36.0-46.0); HEMOGLOBIN 13.4 G/DL (11.9-15.5); MCH 37.4 PG (29.0-34.0); MCHC 34.6 G/DL (30.0-36.0); MCV 108.1 FL (83-99); PLATELET COUNT 331 K/uL (156-360); RBC DIS.WIDTH-CV 14.6 % (11.8-14.6); RBC DIS.WIDTH-SD 58.4 % (39-53); RED BLOOD COUNT 3.58 M/uL (3.80-5.20); WHITE BLOOD COUNT 7.8 K/uL (4.1-10.2)
[2018-01-04 06:47] LABS: ALBUMIN 2.7 g/dL (3.2-4.8); CHLORIDE 100 mEq/L (99-109); POTASSIUM 2.6 mEq/L (3.7-5.4); SODIUM 140 mEq/L (136-147)
[2018-01-04 06:49] LABS: GLUCOSE 100 mg/dL (70-99); TOTAL PROTEIN 6.9 g/dL (6.4-8.3)
[2018-01-04 06:51] LABS: TOTAL BILIRUBIN 0.9 mg/dL (0.0-1.0)
[2018-01-04 06:52] LABS: SERUM ETHYL ALCOHOL < 10 mg/dL
[2018-01-04 06:53] LABS: ALKALINE PHOSPHATASE 167 IU/L (3-129); CREATININE 0.6 mg/dL (0.6-1.3); GFR ESTIMATE (CALCULATED) > 59 mL/min/
[2018-01-04 06:54] LABS: UREA NITROGEN (BUN) 3 mg/dL (9-23)
[2018-01-04 06:55] LABS: AST (GOT) 66 IU/L (2-34)
[2018-01-04 06:56] LABS: ALT (GPT) 55 IU/L (3-49); LIPASE 104 U/L (1.0-51.0)
[2018-01-04 07:02] LABS: QUANTITATIVE HCG < 4.0 MIU/ML
[2018-01-04 08:28] LABS: APPEARANCE CLOUDY ((CLEAR)); BILIRUBIN NEGATIVE; BLOOD SMALL; COLOR YELLOW ((YELLOW)); GLUCOSE (STRIP) NEGATIVE; KETONES NEGATIVE; LEUKOCYTES LARGE; NITRITE NEGATIVE; PROTEIN (STRIP) NEGATIVE; SPECIFIC GRAVITY 1.006 (1.000-1.030)
[2018-01-04 08:40] LABS: BACTERIA RARE /HPF; CALCIUM OXALATE CRYSTALS 3+ /HPF; EPITHELIAL CELLS 2+ /HPF; MUCUS TRACE /LPF; RED BLOOD CELLS 0-5 /HPF (0-5); UCUL ADDED? YES; WHITE BLOOD CELLS TNTC /HPF (0-5)
[2018-01-04 11:16] VITALS: BP 127/83
== END 2018-01-04 11:19 | disposition left against medical advice (07) | DRG 439 ==
LOC: EME 05:37 → EDOF 10:12 → CANRESERV 10:22 → ENRESERV 10:22 → EDOF 10:32
PROVIDERS: Emergency Medicine; Nurse Practitioner Family
DX: K85.90 Acute pancreatitis without necrosis or infection, unspecified (principal); K86.1 Other chronic pancreatitis; K86.3 Pseudocyst of pancreas; E87.6 Hypokalemia; F17.210 Nicotine dependence, cigarettes, uncomplicated; I10 Essential (primary) hypertension; G89.4 Chronic pain syndrome; F10.20 Alcohol dependence, uncomplicated; M79.7 Fibromyalgia; Z86.711 Personal history of pulmonary embolism; J43.9 Emphysema, unspecified
CPT/HCPCS: 71275; 74177; 80053; 81003; 83690; 84702; 85027; 85379; 87077; 87086; 87186; 93005; 99281; 99285; G0480; J1630; J1885; J3480; J7030

== ENCOUNTER 2018-01-18 00:48 | Emergency (ER) | payer OTHER ==
[~2018-01-18] VITALS: Ht 167.6 cm; Wt 63.7 kg
[2018-01-18 01:47] LABS: HEMATOCRIT 41.5 % (36.0-46.0); HEMOGLOBIN 14.7 G/DL (11.9-15.5); MCH 36.5 PG (29.0-34.0); MCHC 35.4 G/DL (30.0-36.0); PLATELET COUNT 335 K/uL (156-360); RBC DIS.WIDTH-CV 13.4 % (11.8-14.6); RBC DIS.WIDTH-SD 51.3 % (39-53); RED BLOOD COUNT 4.03 M/uL (3.80-5.20); WHITE BLOOD COUNT 12.4 K/uL (4.1-10.2)
[2018-01-18 01:52] LABS: ALBUMIN 2.7 g/dL (3.2-4.8); CHLORIDE 92 mEq/L (99-109); POTASSIUM 2.8 mEq/L (3.7-5.4); SODIUM 130 mEq/L (136-147)
[2018-01-18 01:54] LABS: GLUCOSE 158 mg/dL (70-99); TOTAL PROTEIN 7.1 g/dL (6.4-8.3)
[2018-01-18 01:56] LABS: TOTAL BILIRUBIN 1.6 mg/dL (0.0-1.0)
[2018-01-18 01:58] LABS: ALKALINE PHOSPHATASE 196 IU/L (3-129); CREATININE 0.7 mg/dL (0.6-1.3); GFR ESTIMATE (CALCULATED) > 59 mL/min/
[2018-01-18 01:59] LABS: UREA NITROGEN (BUN) 10 mg/dL (9-23)
[2018-01-18 02:00] LABS: AST (GOT) 71 IU/L (2-34)
[2018-01-18 02:01] LABS: ALT (GPT) 53 IU/L (3-49)
[2018-01-18 02:04] LABS: TROP-I INTERPRETATION NEGATIVE; TROPONIN-I 0.01 ng/mL (0.0-0.30)
[2018-01-18 03:14] LABS: APPEARANCE CLOUDY ((CLEAR)); BILIRUBIN NEGATIVE; BLOOD SMALL; COLOR AMBER ((YELLOW)); GLUCOSE (STRIP) NEGATIVE; KETONES NEGATIVE; LEUKOCYTES TRACE; NITRITE NEGATIVE; PROTEIN (STRIP) NEGATIVE
[2018-01-18] MEDS ORDERED: GOLYTELY SOLU4000 ML PO (03:19)
[2018-01-18 03:27] LABS: BACTERIA 3+ /HPF; CALCIUM OXALATE CRYSTALS 1+ /HPF; EPITHELIAL CELLS 1+ /HPF; MUCUS 2+ /LPF; RED BLOOD CELLS 0-5 /HPF (0-5); UCUL ADDED? YES; WHITE BLOOD CELLS 0-5 /HPF (0-5)
[2018-01-18 05:14] VITALS: BP 146/106
== END 2018-01-18 05:16 | disposition home or self-care (01) ==
LOC: EME → EDBD 00:48 → EME 05:16
PROVIDERS: Emergency Medicine Emergency Medical Services
DX: K59.00 Constipation, unspecified (principal); N39.0 Urinary tract infection, site not specified; K21.9 Gastro-esophageal reflux disease without esophagitis; J44.9 Chronic obstructive pulmonary disease, unspecified; I10 Essential (primary) hypertension; M79.7 Fibromyalgia; F41.9 Anxiety disorder, unspecified; F32.9 Major depressive disorder, single episode, unspecified; F31.9 Bipolar disorder, unspecified; F17.200 Nicotine dependence, unspecified, uncomplicated; Z90.49 Acquired absence of other specified parts of digestive tract; Z86.73 Personal history of transient ischemic attack (TIA), and cerebral infarction without residual deficits; Z86.711 Personal history of pulmonary embolism; Z88.6 Allergy status to analgesic agent; Z88.5 Allergy status to narcotic agent; Z88.8 Allergy status to other drugs, medicaments and biological substances; Z91.040 Latex allergy status
CPT/HCPCS: 71045; 80053; 81003; 84484; 85027; 87077; 87086; 87186; 93005; 99281; 99285; J0780; J3010; J7040; J7120